=== PATIENT | female | born 1990 ===

== ENCOUNTER 2024-01-28 13:54 | Outpatient (AMB) | payer MEDICARE, MEDICAID, SELFPAY ==
--- NOTE | 2024-01-28 14:04 | MHC.PC.OV ---
Vital Signs 01/28/24 14:13 Height 5 ft 4 in Weight 89 lb 2 oz BMI 15.3 BP 96/50 L Blood Pressure Location Rt brachial Position Sitting Pulse 75 Pulse Source Pulse Oximeter Temp 98.8 F Temp Source Oral Pulse Oximetry (%) 99 Oxygen Delivery Method Room Air Intake Visit Reasons: est care Intake Note: New patient visit Accompanied by: Mother Is last menstrual period known: Yes Last menstrual period: 01/27/24 Allergies amoxicillin Allergy (Mild, Verified 01/28/24 14:08) Diarrhea Medication List - Last Reconciled 01/28/24 by Shweta Lindsey PA-C cholecalciferol (vitamin D3) (Vitamin D3) 50 mcg PO DAILY lacosamide mg PO omeprazole 20 mg PO DAILY polyethylene glycol 3350 (Miralax) 17 grams PO DAILY sertraline 25 mg PO DAILY topiramate 100 mg PO BID Tobacco use date assessed: 01/28/24 Dental Screening Dental Screen Date: 01/28/24 Did you have a dental visit in the last 12 months?: Yes Did you have a dental problem in the last 6 months where you did not have access to dental care?: No Was dental information given to patient?: Patient has dentist HPI est care HPI Details Pt is a 33 y/o female who presents today to [facility] care. 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 She has a hx of newly diagnosed seizures, constipation, hormonal anxiety. -She can express her needs with eye tracking device. No language. Psych: will start sertraline 25 mg Neuro: [facility] neuro, Dr. Chi, for seizures. This was a recent dx at [facility] this summer. 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 at [facility] Medical History (Updated 01/28/24 @ 15:32 by Shweta Lindsey PA-C) Seizure, epileptic Asthma Family History (Updated 01/28/24 @ 14:20 by Elida Wilson CMA) Mother Asthma Maternal Grandmother HTN (hypertension) Hypercholesteremia Social History (Updated 01/28/24 @ 14:20 by Elida Wilson CMA) Housing: House (With mom) Patient Tobacco Use Status: Never used Tobacco e-Cigarette/Vaping Use: Never Used Second Hand Smoke Exposure: No service: No Current occupational status: disabled Cognitive needs: Yes (neurological disorder.) Hearing needs: No Vision needs: No Female Reproductive History Menstrual Date of last menstrual period: 01/27/24 Questionnaire PHQ-9 Over the last 2 weeks, how often have you been bothered by any of the following problems? 1. Little interest or pleasure in doing things: not at all 2. Feeling down, depressed, or hopeless: not at all 3. Trouble falling or staying asleep, or sleeping too much: not at all 4. Feeling tired or having little energy: not at all 5. Poor appetite or overeating: not at all 6. Feeling bad about yourself - or that you are a failure or have let yourself or your family down: not at all 7. Trouble concentrating on things, such as reading the newspaper or watching television: not at all 8. Moving or speaking so slowly that other people could have noticed. Or the opposite - being so fidgety or restless that you have been moving around a lot more than usual: not at all 9. Thoughts that you would be better off or of hurting yourself in some way: not at all Total score: 0 Depression Screening Interpretation: Negative Depression Screening Done: Yes 73768 - PHQ-9 Billing: Yes Source: Developed by Drs. Jefferson Garcia, Mer Clemens, Kulwinder Loving and colleagues, with an educational josesito from [employer]. Thrive Questionnaire Date Thrive assessed: 01/28/24 I am a: Patient What is your living situation today?: I have a steady place to live Within the past 12 months, did the food you bought not last and you didn't have the money to get more?: Never true Within the past 12 months, did you worry whether your food would run out before you got money to buy more?: Never true Do you have trouble paying for medicines?: No Do you have trouble getting transportation to medical appointments?: No Do you have trouble paying your heating and electricity bill?: No Do you have trouble taking care of your child, family member or friend?: No Do you have trouble with day-to-day activities such as bathing, preparing meals, shopping, managing finances, etc.?: Yes Are you currently unemployed and looking for a job?: No Are you interested in more education?: Yes Please select the resources that you would like help with: Daily support and Education Currently or been in a relationship where the following occur: No concerns reported THRIVE Score: 0 AUDIT C Alcohol Use Questionnaire (AUDIT-C) 1. How often do you have a drink containing alcohol?: Never 3. How often do you have six or more drinks on one occasion?: Never Total Score: 0 FARHANA-7 AMB Questionnaire FARHANA-7 Feeling nervous, anxious, or on edge: 0 = Not at all Not being able to stop or control worryin = Not at all Worrying too much about different things: 0 = Not at all Trouble relaxin = Not at all Being so restless that it is hard to sit still: 0 = Not at all Becoming easily annoyed or irritable: 0 = Not at all Feeling afraid as if something awful might happen: 0 = Not at all Total FARHANA-7 score (0-4 normal; 5-9 mild; 10-14 moderate; 15-21 severe): 0 Source: Developed by Drs. Jefferson Garcia, Mer Clemens, Kulwinder Loving and colleagues, with an educational josesito from [employer]. FARHANA-7 Assessment Billing FARHANA-7 Assessment Tool: FARHANA-7 Assessment 25434 Physical exam (Primary Care) Vital Signs: Last Vital Signs Temp 98.8 F 01/28/24 14:13 Pulse 75 01/28/24 14:13 BP 96/50 L 01/28/24 14:13 Pulse Ox 99 01/28/24 14:13 Oxygen Delivery Method Room Air 01/28/24 14:13 BMI result Body Mass Index 15.3 Tobacco/Smoking Status: Tobacco use Status Tobacco use date assessed 01/28/24 01/28/24 14:20 Patient Tobacco Use Status Never used Tobacco 01/28/24 14:20 e-Cigarette/Vaping Use Never Used 01/28/24 14:20 PHQ-9: PHQ-9 Score PHQ-9: Total score 0 01/28/24 14:46 Depression Screening Interpretation: Negative Thrive Assessment: Date of Thrive Assessment Date Thrive assessed 01/28/24 01/28/24 14:24 Currently or been in a relationship where the following occur: No concerns reported HENMT Ears: hearing grossly normal bilaterally Neck Thyroid: Thyroid normal Lymphatic: no lymphadenopathy noted Resp Auscultation: clear to auscultation bilaterally Cardio Rate: regular rate Rhythm: regular rhythm Heart sounds: S1 normal heart sound present and S2 normal heart sound present Skin General skin exam: no rashes or lesions noted Assessment and Plan Assessment & Plan (1) Seizure, epileptic: Code(s): G40.909 - Epilepsy, unspecified, not intractable, without status epilepticus Plan: following with neurology. 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 has great support system. goes to [employer]. dx officially in 2020 from [facility] with michaelle mcdermid. 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 (3) Mood disorder: Code(s): F39 - Unspecified mood [affective] disorder Plan: will try sertraline. she tried it in the past and tolerated it. follow up 4-6 weeks. Medications: New sertraline 25 mg PO DAILY 90 tabs 0RF Coding Level of Care Code New Pt Level 3 (91929) Diagnoses Seizure, epileptic G40.909 [place]-mcdermid syndrome Q93.52 Mood disorder F39 Additional Codes FARHANA-7 Assessment Billing - FARHANA-7 Assessment Tool: FARHANA-7 Assessment 33036 ([id number])
[2024-01-28 14:13] VITALS: BP 96/50; PULSE 75; TEMP 37.1; O2SAT 99; BMI 15.3
== END 2024-01-28 14:56 | disposition home or self-care (01) ==
PROVIDERS: PCP Physician Assistant; Visit Provider Physician Assistant
DX: G40.909 Epilepsy, unspecified, not intractable, without status epilepticus (principal); Q93.52 Phelan-McDermid syndrome; F39 Unspecified mood [affective] disorder
CPT/HCPCS: 99203

== ENCOUNTER 2024-02-10 09:42 | Outpatient (REF) | payer MEDICARE, MEDICAID, SELFPAY ==
[2024-02-10 11:04] LABS: MANUAL DIFF FLAG NO
[2024-02-10 11:15] LABS: Basophils Absolute Auto 0.1 X10*3/uL (0.0-0.2); Basophils Percent Auto 0.9 % (0-2); Eosinophils Absolute Auto 0.3 X10*3/uL (0.0-0.4); Eosinophils Percent Auto 5.9 % (0-4); Hematocrit 36.5 % (37.0-47.0); Hemoglobin 11.5 g/dl (12.0-16.0); Imm Gran Abs Auto 0.02 X10*3/uL (0.00-0.03); Imm Gran Pct Auto 0.3 % (0.0-0.4); Lymphocytes Absolute Auto 1.7 X10*3/uL (1.2-4.9); Lymphocytes Percent Auto 29.4 % (20-40); Mean Corpuscular HGB Conc 31.5 g/dl (31.0-35.0); Mean Corpuscular Hemoglobin 30.8 pg (27.0-33.0); Mean Corpuscular Volume 97.9 fL (80.0-98.0); Mean Platelet Volume 11.7 fL (9.4-12.3); Monocytes Absolute Auto 0.4 X10*3/uL (0.1-1.2); Monocytes Percent Auto 7.1 % (2-11); Neutrophils Absolute Auto 3.3 x10*3/uL (2.0-8.3); Neutrophils Percent Auto 56.4 % (45-73); Platelet Count 248 X10*3/uL (160-400); Red Blood Count 3.73 X10*6/uL (4.20-5.50); Red Cell Distribution Width 12.2 % (11.0-16.0); White Blood Count 5.8 X10*3/uL (4.8-10.8)
[2024-02-10 12:05] LABS: Alanine Aminotransferase 18 U/L (0-31); Albumin Level 4.1 g/dL (3.5-5.0); Alkaline Phosphatase 64 U/L (39-117); Aspartate Amino Transferase 17 U/L (5-31); Bilirubin Direct 0.1 mg/dL (0.0-0.5); Magnesium 2.2 mg/dL (1.6-2.6); Phosphorus 3.1 mg/dL (2.7-4.5)
[2024-02-10 12:09] LABS: Bilirubin Total 0.2 mg/dL (0.0-1.0)
== END 2024-02-10 09:43 | disposition home or self-care (01) ==
LOC: HO.WFDLDS 09:42
PROVIDERS: Visit Provider Physician Assistant
DX: G40.909 Epilepsy, unspecified, not intractable, without status epilepticus (principal); R79.89 Other specified abnormal findings of blood chemistry; E83.39 Other disorders of phosphorus metabolism
CPT/HCPCS: 36415; 80076; 83735; 84100; 85025

== ENCOUNTER 2024-02-12 12:31 | Outpatient (AMB) | payer MEDICARE, MEDICAID, SELFPAY ==
--- NOTE | 2024-02-12 12:43 | MHC.PC.OV ---
Vital Signs 02/12/24 12:46 BP 108/58 L Blood Pressure Location Rt brachial Intake Visit Reasons: hd follow up/seizures/needs bloodwork done Intake Note: Blood results. Has appt on Thursday for hospital follow up. Allergies amoxicillin Allergy (Mild, Verified 01/28/24 14:08) Diarrhea Medication List - Last Reviewed 02/12/24 by Elida Wilson CMA cholecalciferol (vitamin D3) (Vitamin D3) 50 mcg PO DAILY lacosamide 200 mg (2 x 100 mg) PO BID omeprazole 20 mg PO DAILY polyethylene glycol 3350 (Miralax) 17 grams PO DAILY sertraline 25 mg PO DAILY sod phos di, mono-K phos mono 250 mg (Phospha Neutral) 1 tab PO BID Tobacco use date assessed: 01/28/24 Dental Screening Dental Screen Date: 01/28/24 HPI HPI Comments History of Present Illness Details Here today for a Transitional Care Management Visit Discharge summary reviewed. 33-year-old female admitted for breakthrough seizures. Extensive workup done. Noted to have low phosphorus levels. It was noted that she was receiving excessive calcium supplementation, particularly calcium carbonate through her almond milk which stops a phosphorus from being absorbed. It was estimated that she was receiving 150-100% of her require calcium intake per day and only about 30% of her phosphorus requirements. The low phosphorus levels were also compounded by high copper levels in kachava nutritional shake which increase his phosphorus excretion in the urine. She was discharged home on 15 days of phosphorus supplementation. Advised to stop the kachava shake and almond milk. Recommended to continue the vitamin-D supplementation. Recommended that she use rectal diazepam as needed for recurrent seizures. Follow up with the neurologist, bone doctor and field assessor. Admission Date: 02/03/24 Discharge Date: 02/06/24 Hospital: [facility] Pending diagnostic tests/treatments: none Pending consults: none DME: no new PT/OT/STAPLE SIDE LASTER: [facility] for PT and visiting nurse has not started yet but in the works Referrals: [facility] Neurology appointment scheduled 03/07/2024 Medications reconciled & updated. New medications include diazepam 10 mg per rectum once as needed for seizure activity Potassium phosphate sodium 1 tablet twice per day for 15 days Lacosamide increased from 100 mg twice per day to 200 mg twice per day Ensure 350 kilocalories 3 times per day [facility] Discontinued was her baclofen, elderberry and topiramate Presents today with mom who provides the history. She reports that the patient has had no seizures since return home. She cont to give the Kachava shake but with h20 and not almond milk. Did not start Ensure. Is taking the phosphorus supplement as directed along with the increase in her lacosamide. She discontinued the baclofen, topiramate elderberry as directed. Repeat labs taken on 02/10/2024 show a phosphorus level of 3.1, magnesium 2.2, mild anemia RBCs 3.73, hemoglobin 11.5, hematocrit 36.5 New complaint today is that seasonal allergies. Patient is scratching at her nose and her eyes. Using Flonase without relief. Mom also want to mention in regards to the sertraline that was prescribed at the last primary care visit, that she was not able to start it immediately given the health concerns of the patient currently has. However she does admit that she needs it and will give it as prescribed. She does have a routine follow up scheduled with the primary care in March. Exam Awake, alert, accompanied by mom, nonverbal Rubbing her nose and eyes during the exam Regular rate and rhythm Difficult pulmonary exam as patient is walking around the room, however from what I could appreciate clear. Patient does not have any cough. No audible wheezing. During todays TCM visit, the d/c summary was reviewed, along with the need for or follow-up on pending diagnostic tests and treatments, as necessary interaction with other health healthcare economics manager who will assume or reassume care of the beneficiary?s system-specific problems was done or is being worked on, education was provided to the beneficiary, family, guardian, and/or caregiver, referrals to establish or re-establish and arrange needed community resources we completed, assistance in scheduling required follow-up with community providers and services & finally updated medication list given to patient/caregiver Plan Continue phosphorus supplementation as directed until a 15 day course of therapy is completed. Stop giving the Kachava shake. Please start to use the unsure 3 times per day. I have sent in a [facility] I would like to check her labs about 1 week after phosphorus supplementation is completed. These lab orders have been placed. A referral to a field assessor has been placed today. Please continue lacosamide at the increased dose of 200 mg twice per day, refill sent today. Attend follow up with Neurology as scheduled 03/07/2024. Continue to use p.r.n. rectal diazepam as needed for seizures. Seizure precautions recommended. In regards to her seasonal allergies, recommend Claritin 5 mg soluble tab to be used as needed. This note is constructed using voice recognition software. While every effort has been made to ensure accuracy in procurement manager, still errors may have been included Sometimes, these errors may affect the content or meaning of the given sentence . Total time spent caring for the patient today was 45 minutes. This includes time spent before the visit reviewing the chart, time spent during the visit, and time spent after the visit on documentation [facility] Medical History (Updated 02/12/24 @ 15:27 [facility] Seizure, epileptic Asthma Family History (Updated 01/28/24 @ 14:20 by Elida Wilson CMA) Mother Asthma Maternal Grandmother HTN (hypertension) Hypercholesteremia Social History (Updated 01/28/24 @ 14:20 by Elida Wilson CMA) Housing: House (With mom) Patient Tobacco Use Status: Never used Tobacco e-Cigarette/Vaping Use: Never Used Second Hand Smoke Exposure: No service: No Current occupational status: disabled Cognitive needs: Yes (neurological disorder.) Hearing needs: No Vision needs: No Questionnaire Thrive Questionnaire Date Thrive assessed: 01/28/24 Physical exam (Primary Care) Vital Signs: Last Vital Signs BP 108/58 L 02/12/24 12:46 Tobacco/Smoking Status: Tobacco use Status Tobacco use date assessed 01/28/24 02/12/24 12:45 Patient Tobacco Use Status Never used Tobacco 02/12/24 12:45 e-Cigarette/Vaping Use Never Used 02/12/24 12:45 Thrive Assessment: Date of Thrive Assessment Date Thrive assessed 01/28/24 02/12/24 12:45 Assessment and Plan Assessment & Plan (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 (2) 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 (3) Seizure, epileptic: Code(s): G40.909 - Epilepsy, unspecified, not intractable, without status epilepticus (4) Seasonal allergies: Code(s): J30.2 - Other seasonal allergic rhinitis Orders: Orders Phosphorus 02/23/24 E83.39 - Other disorders of phosphorus metabolism Referrals [facility] Referral E83.39 - Other disorders of phosphorus metabolism, Q93.52 - [place]-McDermid syndrome Medications: New lacosamide 200 mg (2 x 100 mg) PO BID 120 tabs 1RF loratadine (Allergy Relief (loratadine)) 5 mg PO DAILY 90 tabs 0RF food supplemt, lactose-reduced (Ensure Original oral liquid) Ensure original, 8oz, 3 times per day 1 ea PO TID 21,600 mL 2RF Coding Level of Care Code TCM High MDM <= 7 Days Diagnoses Hypophosphatemia E83.39 Eugene-mcdermid syndrome Q93.52 Seizure, epileptic G40.909 Seasonal allergies J30.2
[2024-02-12 12:46] VITALS: BP 108/58
== END 2024-02-12 13:12 | disposition home or self-care (01) ==
PROVIDERS: PCP Physician Assistant; Visit Provider Nurse Practitioner Family
DX: E83.39 Other disorders of phosphorus metabolism (principal); Q93.52 Phelan-McDermid syndrome; G40.909 Epilepsy, unspecified, not intractable, without status epilepticus; J30.2 Other seasonal allergic rhinitis
CPT/HCPCS: 99496

== ENCOUNTER 2024-03-02 11:30 | Outpatient (AMB) | payer MEDICARE, MEDICAID, SELFPAY ==
--- NOTE | 2024-03-02 11:33 | A.OFFPC_ITS ---
Vital Signs 03/02/24 11:36 Height 5 ft 4 in Weight 88 lb 6 oz BMI 15.2 BP 98/60 Blood Pressure Location Lt brachial Position Sitting Respiration 14 Comment unable to get o2 or pulse Intake Visit Reasons: HDF/not eating or drinking Intake Note: follow up on patient not eating or drinking. Patient just started eating something light on last thursday. Allergies amoxicillin Allergy (Mild, Verified 03/02/24 11:40) Diarrhea Medication List - Last Reconciled 03/02/24 by AUYSH MontillaP- cholecalciferol (vitamin D3) (Vitamin D3) 50 mcg PO DAILY diazepam MA DAILY food supplemt, lactose-reduced (Ensure Original oral liquid) 1 ea PO TID lacosamide 200 mg (2 x 100 mg) PO BID loratadine (Allergy Relief (loratadine)) 5 mg PO DAILY omeprazole 20 mg PO DAILY polyethylene glycol 3350 (Miralax) 17 grams PO DAILY sertraline 25 mg PO DAILY sod phos di, mono-K phos mono 250 mg (Phospha Neutral) 1 tab PO BID Tobacco use date assessed: 01/28/24 Dental Screening Dental Screen Date: 01/28/24 HPI HPI Comments History of Present Illness Details Here today for a Transitional Care Management Visit Discharge summary reviewed. 33 y/o F, medically complex, Presented to the emergency room after 24 hours of refusal to eat, drink or take her medications. Found to have stercoral colitisn. She was treated with an aggressive bowel regimen, NG tube decompression which produced several bowel movements. She was tolerating p.o. intake on discharge. She was also having a hard time opening her mouth. I discussion was had about placing a G-tube but the family wanted to give her more time. At discharge her phosphorus level was 2.7, magnesium 1.9, BUN 2 creatinine 0.42, normal electrolytes RBCs 3.66, hemoglobin 11.2, hematocrit 33.8 Admission Date: Discharge Date: 02/27/24 Hospital: [facility] Referrals: Recommend referral to Gastroenterology, discuss goals of care and possible G-tube placement, outpatient nutrition, repeat electrolytes, magnesium, phosphorus, renal function in 2-3 days, follow up chronic anemia Medications reconciled & updated. No medications discontinued New medications include Bisacodyl 10 mg rectal suppository, 1 suppository rectally as needed for constipation Docusate 100 mg 1 tablet by mouth 2 times per day Polyethylene glycol 3350 17 g by mouth 2 times per day for the next few days and then daily as needed Psyllium 2.4 g/3.7 g oral powder take 2.4 g by mouth 2 times a day as needed for constipation Senna 187 mg 2 tab 8.6 mg by mouth daily at bedtime as needed for constipation Presents with mom and dad today. Initially upon return home she would not eat or open her mouth. However the next day she ate very little food and drank. On Thursday again she would not open her mouth to eat. The mom gave her a bisacodyl suppository which produced a large diarrhea mushy brown stool early Thursday morning. She seemed to eat and drink better after this. She has been able to take her medications, eat, drink. She has been giving her the Colace and MiraLax. Has not started the Metamucil or the senna. Did by flaxseed meal however given the poor p.o. intake this has not been used routinely. The parents deny any nausea or vomiting. Deny any fever. Discussed gastroenterology referral. They are open to this. Asked about G- tube. Discuss need to meet her nutritional needs. Risk for nutritional deficiencies given the above. A travelers' aid worker referral is already in place. Exam: Awake, alert, accompanied by mom & Dad , nonverbal. sitting the in chair, moaning occasionally. Putting her hand to her mouth, parents indicate that means she is hungry she does not appear distressed Last time i saw her she was moaning and pacing in the room. Rubbing her nose and eyes during the exam occassionally Regular rate and rhythm Abd soft, nontender, normoactive bs x 4. Plan: KUB and labs today. See below. Mom called at 1715 w the results. I have advised her to give fleets enema tonight and tomorrow morning. Bisacodyl 10 mg rectal suppository, 1 suppository rectally as needed for constipation every 72 hours Docusate 100 mg 1 tablet by mouth 2 times per day Polyethylene glycol 3350 17 g by mouth then daily Psyllium 2.4 g/3.7 g oral powder take 2.4 g by mouth 2 times a day Senna 187 mg 2 tab 8.6 mg by mouth daily at bedtime Repeat KUB on Thursday Referral to [facility] GI Schedule appt w Nutrition FU with PCP as scheduled [facility] TCM visit, the d/c summary was reviewed, along with the need for or follow-up on pending diagnostic tests and treatments, as necessary interaction with other health insurance healthcare representative who will assume or reassume care of the beneficiary?s system-specific problems was done or is being worked on, education was provided to the beneficiary, family, guardian, and/or caregiver, referrals to establish or re-establish and arrange needed community resources we completed, assistance in scheduling required follow-up with community providers and services & finally updated medication list given to patient/caregiver This note is constructed using voice recognition software. While every effort has been made to ensure accuracy in lead technologist in cytogenetics, still errors may have been included Sometimes, these errors may affect the content or meaning of the given sentence . [facility] Medical History (Updated 03/02/24 @ 17:28 by GEMMA Montilla) Seizure, epileptic Asthma Family History (Updated 01/28/24 @ 14:20 by Elida Wilson CMA) Mother Asthma Maternal Grandmother HTN (hypertension) Hypercholesteremia Social History (Updated 01/28/24 @ 14:20 by Elida Wilson CMA) Housing: House (With mom) Patient Tobacco Use Status: Never used Tobacco e-Cigarette/Vaping Use: Never Used Second Hand Smoke Exposure: No service: No Current occupational status: disabled Cognitive needs: Yes (neurological disorder.) Hearing needs: No Vision needs: No Questionnaire Thrive Questionnaire Date Thrive assessed: 01/28/24 Physical exam (Primary Care) Vital Signs: Last Vital Signs Resp 14 03/02/24 11:36 BP 98/60 03/02/24 11:36 BMI result Body Mass Index 15.2 Tobacco/Smoking Status: Tobacco use Status Tobacco use date assessed 01/28/24 03/02/24 11:35 Patient Tobacco Use Status Never used Tobacco 03/02/24 11:35 e-Cigarette/Vaping Use Never Used 03/02/24 11:35 Thrive Assessment: Date of Thrive Assessment Date Thrive assessed 01/28/24 03/02/24 11:35 Results Reviewed [place]ed[place] [facility] [id number] [place] [address] KERRY Stock [id number] Report Signed Patient: Ashlie Paulino#: [id number]: 1990Acct:[id number]/Sex: 33 / FADM Date: 03/02/24Loc: [id number] Dr: Arlene Storm [facility] Ordering Physician: Arlene Storm Date of Service: 03/02/24 Procedure(s): XR KUB Accession Number(s): [id number] cc: MECCA PINON NP; Shweta Lindsey; rAlene Storm [facility]~ EXAMINATION: XR ABDOMEN CLINICAL INFORMATION: Pain COMPARISON: None TECHNIQUE: Frontal view. FINDINGS: Included lung bases are clear. Air-filled dilated colon and rectum concerning for colonic ileus, There is also increased amount of stool projecting over the colon especially rectum raising suspicion for constipation. There is no evidence of bowel obstruction, however. There is no evidence of abnormal calcifications. There is no acute skeletal structure changes. There is no evidence of small-bowel obstruction. There is no free air in the abdomen. XR/XR KUB IMPRESSION: * Increased amount of stool in the colon suggesting constipation. Please correlate with clinical presentation. * Air-filled dilated colon and rectum concerning for colonic ileus versus sequela of the rectal fecal impaction. Consider correlation with follow-up x-ray after enema Electronically signed by: Issa Croft MD 03/02/2024 05:02 PM EDT Dictated By:Issa Croft MDSigned By:<Electronically signed by Issa aparicio MD in OV>03/02/24 1702 DD/ 1344 RUN: 03/02/24 1637 PAGE 1 [facility] [address] [place] [phone] Digital Retoucher: Faustino Krishnamurthy M.D. Specimen Inquiry Name: Socorro Paulino Age/Sex: 33/F : 1990 Unit#: [id number] Attend Dr: Arlene Storm [facility] Re03/02/24 Status: REG REF Location: [facility] Disch: SPEC : [id number] EFRAIN: 03/02/24 STATUS: COMP REQ : [id number] RECD: 03/02/[address]: Arlene Storm [facility] COMP: 03/02/24 ENTERED: 03/02/[address]: Shweta Lindsey ORDERED: CBC No Diff Test Result Flag Reference WBC 5.2 4.8-10.8 X10*3/uL RBC 4.20 4.20-5.50 X10*6/uL HGB 12.8 12.0-16.0 g/dl HCT 39.9 37.0-47.0 % MCV 95.0 80.0-98.0 fL MCH 30.5 27.0-33.0 pg MCHC 32.1 31.0-35.0 g/dl RDW 12.2 11.0-16.0 % PLT 308 160-400 X10*3/uL MPV 12.6 H 9.4-12.3 fL NRBC Pct Auto 0.0 0.0-0.2 /100WBC NRBC Abs Auto 0.000 0.0-0.012 X10*3/uL END OF REPORT RUN: 03/02/24 6796 PAGE 1 [facility] [address] [place] [id number] Digital Retoucher: Faustino Krishnamurthy M.D. Specimen Inquiry Name: Socorro Paulino Age/Sex: 33/F : 1990 Unit#: [id number] Attend Dr: Arlene Strom [facility] Re03/02/24 Status: REG REF Location: [facility] Disch: SPEC : [id number] EFRAIN: 03/02/24 STATUS: COMP REQ : [id number] RECD: 03/02/24-[address]: Arelne Storm [facility] COMP: 03/02/24-1703 ENTERED: 03/02/24-[address]: Shweta Lindsey ORDERED: CMP, Phos, MG Test Result Flag Reference Sodium 138 135-145 mmol/L Potassium 4.7 3.3-5.1 mmol/L Mild Hemolysis CL 104 96-108 mmol/L CO2 22 22-29 mmol/L Gap 17 12-20 BUN 5 L 9-16 mg/dL Creat 0.72 0.5-1.4 mg/dL EGFR > 60 NOTE: For -Citizen Of [place] individuals, multiply the result by 1.210. Chronic Kidney Disease: Estimated GFR < 60 mL/min/1.73m2 Severe Kidney Disease: Estimated GFR < 15 mL/min/1.73m2 Glucose, Random 81 60-115 mg/dL CA 9.8 8.4-10.2 mg/dL Phosphorus 3.8 2.7-4.5 mg/dL Mild Hemolysis Magnesium 2.5 1.6-2.6 mg/dL Mild Hemolysis Total Bili 0.2 0.0-1.0 mg/dL AST (GOT) 27 5-31 U/L Mild Hemolysis ALT (GPT) 14 0-31 U/L Protein, Total 8.4 H 6.5-8.0 g/dL Mild Hemolysis Alb 4.5 3.5-5.0 g/dL Alk Phos 64 39-117 U/L END OF REPORT Assessment and Plan Assessment & Plan (1) Hospital discharge follow-up: Code(s): Z09 - Encounter for follow-up examination after completed treatment for conditions other than malignant neoplasm (2) Stercoral colitis: Code(s): K52.89 - Other specified noninfective gastroenteritis and colitis (3) Failure to thrive in adult: Code(s): R62.7 - Adult failure to thrive (4) Hypophosphatemia: Code(s): E83.39 - Other disorders of phosphorus metabolism (5) Anemia: Code(s): D64.9 - Anemia, unspecified Qualifiers: Anemia type: iron deficiency Iron deficiency anemia type: inadequate dietary iron intake Qualified Code(s): D50.8 - Other iron deficiency anemias (6) Constipation: Code(s): K59.00 - Constipation, unspecified Qualifiers: Constipation type: slow transit constipation Qualified Code(s): K59.01 - Slow transit constipation Orders: Orders XR KUB Today K52.89 - Other specified noninfective gastroenteritis and colitis Phosphorus Today D64.9 - Anemia, unspecified, E83.39 - Other disorders of phosphorus metabolism, K52.89 - Other specified noninfective gastroenteritis and colitis, R62.7 - Adult failure to thrive Comprehensive Met. Panel Today D64.9 - Anemia, unspecified, E83.39 - Other disorders of phosphorus metabolism, K52.89 - Other specified noninfective gastroenteritis and colitis, R62.7 - Adult failure to thrive Complete Blood Count no Diff Today D64.9 - Anemia, unspecified, E83.39 - Other disorders of phosphorus metabolism, K52.89 - Other specified noninfective gastroenteritis and colitis, R62.7 - Adult failure to thrive Magnesium Today D64.9 - Anemia, unspecified, E83.39 - Other disorders of phosphorus metabolism, R62.7 - Adult failure to thrive XR KUB Today K52.89 - Other specified noninfective gastroenteritis and colitis, K59.00 - Constipation, unspecified Referrals Gastroenterology Referral K52.89 - Other specified noninfective gastroente ritis and colitis, R62.7 - Adult failure to thrive Medications: New sennosides (senna) 17.2 mg (2 x 8.6 mg) PO BEDTIME 90 days 180 tabs 2RF docusate sodium (Colace) 100 mg PO BID 90 days 180 caps 2RF mineral oil (Fleet Mineral Oil enema) x 2 118 mL MA DAILY PRN 266 mL 0RF constipation Coding Level of Care Code TCM High MDM <= 7 Days Complex EM visit Add On G2211 Diagnoses Hospital discharge follow-up Z09 Stercoral colitis K52.89 Failure to thrive in adult R62.7 Hypophosphatemia E83.39 Iron deficiency anemia secondary to inadequate dietary iron intake D50.8 Anemia type: iron deficiency Iron deficiency anemia type: inadequate dietary iron intake Slow transit constipation K59.01 Constipation type: slow transit constipation
[2024-03-02 11:36] VITALS: BP 98/60; RESP 14; BMI 15.2
== END 2024-03-02 14:46 | disposition home or self-care (01) ==
PROVIDERS: PCP Physician Assistant; Visit Provider Nurse Practitioner Family
DX: K52.89 Other specified noninfective gastroenteritis and colitis (principal); R62.7 Adult failure to thrive; E83.39 Other disorders of phosphorus metabolism; D50.8 Other iron deficiency anemias; K59.01 Slow transit constipation; Z09 Encounter for follow-up examination after completed treatment for conditions other than malignant neoplasm

== ENCOUNTER → 2024-03-02 11:30 | Outpatient (BNVA) | payer MEDICARE, MEDICAID, SELFPAY | PROVIDERS: PCP Physician Assistant; Visit Provider Nurse Practitioner Family ==

== ENCOUNTER 2024-03-02 13:38 | Outpatient (REF) | payer MEDICARE, MEDICAID, SELFPAY ==
--- NOTE | ~2024-03-02 | XR_ITS ---
EXAMINATION: XR ABDOMEN CLINICAL INFORMATION: Pain COMPARISON: None TECHNIQUE: Frontal view. FINDINGS: Included lung bases are clear. Air-filled dilated colon and rectum concerning for colonic ileus, There is also increased amount of stool projecting over the colon especially rectum raising suspicion for constipation. There is no evidence of bowel obstruction, however. There is no evidence of abnormal calcifications. There is no acute skeletal structure changes. There is no evidence of small-bowel obstruction. There is no free air in the abdomen. XR/XR KUB IMPRESSION: * Increased amount of stool in the colon suggesting constipation. Please correlate with clinical presentation. * Air-filled dilated colon and rectum concerning for colonic ileus versus sequela of the rectal fecal impaction. Consider correlation with follow-up x-ray after enema Electronically signed by: Issa Croft MD 03/02/2024 05:02 PM EDT
[2024-03-02 16:28] LABS: Hematocrit 39.9 % (37.0-47.0); Hemoglobin 12.8 g/dl (12.0-16.0); Mean Corpuscular HGB Conc 32.1 g/dl (31.0-35.0); Mean Corpuscular Hemoglobin 30.5 pg (27.0-33.0); Mean Platelet Volume 12.6 fL (9.4-12.3); Platelet Count 308 X10*3/uL (160-400); Red Cell Distribution Width 12.2 % (11.0-16.0); White Blood Count 5.2 X10*3/uL (4.8-10.8)
[2024-03-02 17:04] LABS: Alanine Aminotransferase 14 U/L (0-31); Albumin Level 4.5 g/dL (3.5-5.0); Alkaline Phosphatase 64 U/L (39-117); Anion Gap 17 (12-20); Aspartate Amino Transferase 27 U/L (5-31); Bilirubin Total 0.2 mg/dL (0.0-1.0); Blood Urea Nitrogen 5 mg/dL (9-16); Calcium 9.8 mg/dL (8.4-10.2); Carbon Dioxide 22 mmol/L (22-29); Chloride 104 mmol/L (96-108); Estimated Glomerular Filt Rate > 60; Glucose Random 81 mg/dL (60-115); Magnesium 2.5 mg/dL (1.6-2.6); Phosphorus 3.8 mg/dL (2.7-4.5); Potassium 4.7 mmol/L (3.3-5.1); Sodium 138 mmol/L (135-145); Total Protein 8.4 g/dL (6.5-8.0)
== END 2024-03-02 13:39 | disposition home or self-care (01) ==
LOC: HO.HMGCX 13:38
PROVIDERS: PCP Physician Assistant; Visit Provider Nurse Practitioner Family
DX: K52.89 Other specified noninfective gastroenteritis and colitis (principal); R62.7 Adult failure to thrive; D50.8 Other iron deficiency anemias; K59.01 Slow transit constipation
CPT/HCPCS: 36415; 74018; 80053; 83735; 84100; 85027; 99212

== ENCOUNTER 2024-03-05 13:03 | Outpatient (REF) | payer MEDICARE, MEDICAID, SELFPAY ==
--- NOTE | ~2024-03-05 | XR_ITS ---
EXAMINATION: XR ABDOMEN KUB CLINICAL INDICATION: Follow-up from prior KUB 03/02/2024, constipation, unspecified, status post enema. COMPARISON: 03/02/2024 KUB. TECHNIQUE: AP view of the abdomen. FINDINGS: Previously seen gas distended ascending and transverse colon as well as rectum and sigmoid has resolved to a good degree. Previously seen large ball of stool in the rectal vault is essentially resolved. There is persistent large volume stool seen throughout the colon, mainly in the transverse, descending, sigmoid, and superior rectal region. No abnormally dilated loops of small bowel or large bowel at this time. No definite abnormal soft tissue calcification. Lung bases clear. No organomegaly. No suspicious bone abnormalities. Subtle right convex scoliosis of the lumbar spine, possibly positional. XR/XR KUB IMPRESSION: 1. Resolution of rectal fecal impaction. 2. Resolution of gas distended ascending and transverse colon, and rectosigmoid. 3. Persistent obstipation. 4. No abnormally dilated loops of bowel. Electronically signed by: William Santos MD 03/16/2024 11:51 AM EDT
== END 2024-03-05 13:04 | disposition home or self-care (01) ==
LOC: HO.HMGCX 13:03
PROVIDERS: PCP Physician Assistant; Visit Provider Nurse Practitioner Family
DX: K59.00 Constipation, unspecified (principal); K52.89 Other specified noninfective gastroenteritis and colitis
CPT/HCPCS: 74018

== ENCOUNTER → 2024-03-05 13:11 | Outpatient (BNV) | payer MEDICARE, MEDICAID, SELFPAY | PROVIDERS: PCP Physician Assistant; Visit Provider Radiology Diagnostic Radiology | DX: K56.41 Fecal impaction (principal) | CPT/HCPCS: 74018 ==

== ENCOUNTER 2024-03-16 11:04 | Outpatient (AMB) | payer MEDICARE, MEDICAID, SELFPAY ==
--- NOTE | 2024-03-16 11:05 | MHC.PC.OV ---
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 She is accompanied today by both parents who helps provide the history as she is nonverbal. Since I last saw her she was hospitalized a couple times and most recently hospitalized for bowel obstruction with fecal impaction that resolved with aggressive bowel regimen. She had a KUB which showed improvement of symptoms on 03/05. When she was in the hospital they did discuss possibly doing a G-tube but patient's family wants to hold off on this for as long as possible. They tell me today that it seems like her weight is stable and she is not continuing to lose weight. She seems to enjoy eating again. She saw GI last week and states that they switched her from Colace and senna to Linzess and that seems to have made a difference. She is also still on Metamucil and MiraLax daily. She is having regular bowel movements again. Mom uses enema as needed for her. They have a follow up with GI in 2 weeks. At my last visit with her I did start her on sertraline daily to help with anxiety and they feel like this has helped. She is tolerating the medication well. Parents do notice that she is a little bit of flaking around her right external ear. She sometimes scratches at it. They state that for last couple weeks she has been back to her baseline and would like a letter to return to her day program. [facility] Medical History (Updated 03/16/24 @ 12:41 by Shweta Lindsey PA-C) Seizure, epileptic Asthma Family History (Updated 01/28/24 @ 14:20 by Elida Wilson CMA) Mother Asthma Maternal Grandmother HTN (hypertension) Hypercholesteremia Social History (Updated 01/28/24 @ 14:20 by Elida Wilson CMA) Housing: House (With mom) Patient Tobacco Use Status: Never used Tobacco e-Cigarette/Vaping Use: Never Used Second Hand Smoke Exposure: No service: No Current occupational status: disabled Cognitive needs: Yes (neurological disorder.) Hearing needs: No Vision needs: No Questionnaire Thrive Questionnaire Date Thrive assessed: 01/28/24 Physical exam (Primary Care) Vital Signs: Last Vital Signs BP 96/62 03/16/24 11:16 BMI result Body Mass Index 15.2 Tobacco/Smoking Status: Tobacco use Status Tobacco use date assessed 01/28/24 03/16/24 11:07 Patient Tobacco Use Status Never used Tobacco 03/16/24 11:07 e-Cigarette/Vaping Use Never Used 03/16/24 11:07 Thrive Assessment: Date of Thrive Assessment Date Thrive assessed 01/28/24 03/16/24 11:07 HENMT Other: There is flaking skin of the bilateral external ears Ears: hearing grossly normal bilaterally Neck Thyroid: Thyroid normal Lymphatic: no lymphadenopathy noted Resp Auscultation: clear to auscultation bilaterally Cardio Rate: regular rate Rhythm: regular rhythm Heart sounds: S1 normal heart sound present and S2 normal heart sound present GI Inspection: Yes normal to inspection Palpation (GI): Soft to palpation and Other GI palpation findings present (nontender, no cva tenderness) Auscultation: normoactive bowel sounds Rectal Exam - Female: deferred Skin General skin exam: no rashes or lesions noted Results Reviewed Results Reviewed: EXAMINATION: XR ABDOMEN KUB CLINICAL INDICATION: Follow-up from prior KUB 03/02/2024, constipation, unspecified, status post enema. COMPARISON: 03/02/2024 KUB. TECHNIQUE: AP view of the abdomen. FINDINGS: Previously seen gas distended ascending and transverse colon as well as rectum and sigmoid has resolved to a good degree. Previously seen large ball of stool in the rectal vault is essentially resolved. There is persistent large volume stool seen throughout the colon, mainly in the transverse, descending, sigmoid, and superior rectal region. No abnormally dilated loops of small bowel or large bowel at this time. No definite abnormal soft tissue calcification. Lung bases clear. No organomegaly. No suspicious bone abnormalities. Subtle right convex scoliosis of the lumbar spine, possibly positional. XR/XR KUB IMPRESSION: 1. Resolution of rectal fecal impaction. 2. Resolution of gas distended ascending and transverse colon, and rectosigmoid. 3. Persistent obstipation. 4. No abnormally dilated loops of bowel. 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 Has follow up with GI again in 2 weeks. Reviewed KUB with family (2) Failure to thrive in adult: Code(s): R62.7 - Adult failure to thrive Category: Medical Plan: Stable/improved. (3) Mood disorder: Code(s): F39 - Unspecified mood [affective] disorder Category: Medical Plan: Improves with sertraline (4) Eczema of both external ears: Code(s): H60.543 - Acute eczematoid otitis externa, bilateral Category: Medical Plan: They will use [id number] hydrocortisone cream twice a day for the next week and let me know if symptoms fail to improve.
[2024-03-16 11:16] VITALS: BP 96/62; BMI 15.2
== END 2024-03-16 11:46 | disposition home or self-care (01) ==
LOC: HO.HMCFM 11:04
PROVIDERS: PCP Physician Assistant; Visit Provider Physician Assistant
DX: K59.01 Slow transit constipation (principal); R62.7 Adult failure to thrive; F39 Unspecified mood [affective] disorder; H60.543 Acute eczematoid otitis externa, bilateral

== ENCOUNTER → 2024-03-16 11:04 | Outpatient (BNVA) | payer MEDICARE, MEDICAID, SELFPAY | PROVIDERS: PCP Physician Assistant; Visit Provider Physician Assistant | DX: K59.01 Slow transit constipation (principal); R62.7 Adult failure to thrive; F39 Unspecified mood [affective] disorder; H60.543 Acute eczematoid otitis externa, bilateral | CPT/HCPCS: 99212 ==

== ENCOUNTER 2024-03-23 08:47 | Outpatient (AMB) | payer MEDICARE, MEDICAID, SELFPAY ==
--- NOTE | 2024-03-23 08:53 | MHC.PC.OV ---
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 She is accompanied today by both parents who helps provide the history as she is nonverbal. Over the weekend mom has noted a decrease in eating. Over the last 24 hours she has not wanted to eat or drink. She thought possibly it was related to constipation but is not sure anymore. She states that she has been getting good size bowel movements when she has use the enema. She last used this yesterday. She has been having a hard time getting her to take her meds because of the refusal to eat and drink. She says that she has had the syringe some fluid into her mouth today to get her to take the seizure medications. She has seemed a bit more agitated than baseline. Over the last week in the morning she seems to be agitated for a couple hours. They wonder if it is related to her antiseizure regimen but she was previously fine with this. They also wonder if it could be the Zoloft that is causing her to get agitated. She has not taken this for a couple days with no change in symptoms. She was supposed to have a follow up with GI on Thursday for the new bowel regimen which is MiraLax, Colace and Linzess with enemas as needed. They have been trying to hold off on doing a G-tube but mom wonders if it is time for this. She has lost a few lb since she was last seen. She denies any fever, chills, sinus pain or pressure, vomiting, odor in her diaper, urinary symptoms, change in energy, or obvious signs of pain. [facility] Medical History (Updated 03/16/24 @ 12:41 by Shweta Lindsey PA-C) Seizure, epileptic Asthma Family History (Updated 01/28/24 @ 14:20 by Elida Wilson CMA) Mother Asthma Maternal Grandmother HTN (hypertension) Hypercholesteremia Social History (Updated 01/28/24 @ 14:20 by Elida Wilson CMA) Housing: House (With mom) Patient Tobacco Use Status: Never used Tobacco e-Cigarette/Vaping Use: Never Used Second Hand Smoke Exposure: No service: No Current occupational status: disabled Cognitive needs: Yes (neurological disorder.) Hearing needs: No Vision needs: No Questionnaire Thrive Questionnaire Date Thrive assessed: 01/28/24 I am a: Parent/Caregiver What is your living situation today?: I have a steady place to live Within the past 12 months, did the food you bought not last and you didn't have the money to get more?: I choose not to answer this question Within the past 12 months, did you worry whether your food would run out before you got money to buy more?: I choose not to answer this question Do you have trouble paying for medicines?: I choose not to answer this question Do you have trouble getting transportation to medical appointments?: I choose not to answer this question Do you have trouble paying your heating and electricity bill?: I choose not to answer this question Do you have trouble taking care of your child, family member or friend?: I choose not to answer this question Do you have trouble with day-to-day activities such as bathing, preparing meals, shopping, managing finances, etc.?: I choose not to answer this question Are you currently unemployed and looking for a job?: I choose not to answer this question Are you interested in more education?: I choose not to answer this question Please select the resources that you would like help with: Transportation Currently or been in a relationship where the following occur: No concerns reported THRIVE Score: 0 AUDIT C Alcohol Use Questionnaire (AUDIT-C) 1. How often do you have a drink containing alcohol?: Never Total Score: 0 FARHANA-7 AMB Questionnaire FARHANA-7 Feeling nervous, anxious, or on edge: 0 = Not at all Not being able to stop or control worryin = Not at all Worrying too much about different things: 0 = Not at all Trouble relaxin = Not at all Being so restless that it is hard to sit still: 3 = Nearly every day Becoming easily annoyed or irritable: 2 = More than half the days Feeling afraid as if something awful might happen: 2 = More than half the days Total FARHANA-7 score (0-4 normal; 5-9 mild; 10-14 moderate; 15-21 severe): 7 Source: Developed by Drs. Jefferson Garcia, Mer Clemens, Kulwinder Loving and colleagues, with an educational josesito from [employer]. Physical exam (Primary Care) Vital Signs: Last Vital Signs BP 102/62 03/23/24 08:54 BMI result Body Mass Index 16.8 Tobacco/Smoking Status: Tobacco use Status Tobacco use date assessed 01/28/24 03/23/24 08:57 Patient Tobacco Use Status Never used Tobacco 03/23/24 08:57 e-Cigarette/Vaping Use Never Used 03/23/24 08:57 Thrive Assessment: Date of Thrive Assessment Date Thrive assessed 01/28/24 03/23/24 08:57 Currently or been in a relationship where the following occur: No concerns reported HENMT Ears: hearing grossly normal bilaterally Neck Thyroid: Thyroid normal Lymphatic: no lymphadenopathy noted Resp Auscultation: clear to auscultation bilaterally Cardio Rate: regular rate Rhythm: regular rhythm Heart sounds: S1 normal heart sound present and S2 normal heart sound present GI Inspection: Yes normal to inspection Palpation (GI): Soft to palpation and Other GI palpation findings present (nontender, no cva tenderness) Auscultation: normoactive bowel sounds Rectal Exam - Female: deferred Skin General skin exam: no rashes or lesions noted Coding Level of Care Code Est Pt Level 4 (62609) Diagnoses Failure to thrive in adult R62.7 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 Patient and family understand and agree with the plan. I did call [place] with an expect. We will follow up afterwards. 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
[2024-03-23 08:54] VITALS: BP 102/62; BMI 16.8
== END 2024-03-23 11:43 | disposition home or self-care (01) ==
PROVIDERS: PCP Physician Assistant; Visit Provider Physician Assistant
DX: R62.7 Adult failure to thrive (principal); Q93.52 Phelan-McDermid syndrome

== ENCOUNTER → 2024-03-23 08:47 | Outpatient (BNVA) | payer MEDICARE, MEDICAID, SELFPAY | PROVIDERS: PCP Physician Assistant; Visit Provider Physician Assistant | DX: R62.7 Adult failure to thrive (principal); Q93.52 Phelan-McDermid syndrome | CPT/HCPCS: 99212 ==

== ENCOUNTER 2024-05-25 10:12 | Outpatient (AMB) | payer MEDICARE, MEDICAID, SELFPAY ==
--- NOTE | 2024-05-25 10:20 | A.OFFPC_ITS ---
Vital Signs 05/25/24 10:31 Weight 85 lb BMI Reason not done Patient refused/unable BP 96/60 Blood Pressure Location Rt brachial Position Sitting Intake Visit Reasons: Seizure f/u Intake Note: Hospital follow up Children'S Author Required: No Allergies amoxicillin Allergy (Mild, Verified 05/25/24 10:22) Diarrhea Medication List - Last Reconciled 05/25/24 by Shweta Lindsey PA-C cholecalciferol (vitamin D3) (Vitamin D3) 50 mcg PO DAILY diazepam SD DAILY food supplemt, lactose-reduced (Ensure Original oral liquid) 1 ea PO TID lacosamide 200 mg (2 x 100 mg) PO BID linaclotide (Linzess) . loratadine (Allergy Relief (loratadine)) 5 mg PO DAILY mineral oil (Fleet Mineral Oil enema) 118 mL SD DAILY PRN nitrofurantoin monohyd/m-cryst 100 mg 1 cap PO BID polyethylene glycol 3350 (Miralax) 17 grams PO DAILY Tobacco use date assessed: 01/28/24 Dental Screening Dental Screen Date: 01/28/24 HPI Seizure f/u HPI Details Patient is a 33-year-old female with a significant past medical history of [place] McDermid syndrome, failure to thrive, constipation, seizures presenting today for a hospital follow up. She was hospitalized last week at [facility] with a fever, decreased appetite, dehydration and diagnosed ultimately with a UTI. On Macrobid until Thursday. After a couple of days patient's mom's states that she started to eat. She did lose a couple lb from the hospitalization. They are discussing tube feedings with GI but she really wants to hold off on this. She is interested in also starting a probiotic to see if that will help with the constipation. The constipation seems to be better with the MiraLax and use of Linzess. Ultimately, mother would like to cut back on the Linzess if possible and go with more of a natural approach with the probiotics as [place] often gets bloated. She has an upcoming appointment arranged with GI on the . She is continuing with the Protonix. Currently diet is an ensure in the morning and another 1/2 ensure in the evening. They are trying to increase her weight. Since the hospital she does seem a bit better but she is tired more than her baseline. Her mood and appetite seem to be better. She overall seems improved with the clobazam, lacosamide and Topamax. [facility] Medical History (Updated 05/25/24 @ 13:11 by Shewta Lindsey PA-C) Seizure, epileptic Asthma Family History (Updated 01/28/24 @ 14:20 by Elida Wilson CMA) Mother Asthma Maternal Grandmother HTN (hypertension) Hypercholesteremia Social History (Updated 01/28/24 @ 14:20 by Elida Wilson CMA) Housing: House (With mom) Patient Tobacco Use Status: Never used Tobacco e-Cigarette/Vaping Use: Never Used Second Hand Smoke Exposure: No service: No Current occupational status: disabled Cognitive needs: Yes (neurological disorder.) Hearing needs: No Vision needs: No Questionnaire Thrive Questionnaire Date Thrive assessed: 03/23/24 I am a: Parent/Caregiver What is your living situation today?: I have a steady place to live Within the past 12 months, did the food you bought not last and you didn't have the money to get more?: I choose not to answer this question Within the past 12 months, did you worry whether your food would run out before you got money to buy more?: I choose not to answer this question Do you have trouble paying for medicines?: I choose not to answer this question Do you have trouble getting transportation to medical appointments?: I choose not to answer this question Do you have trouble paying your heating and electricity bill?: I choose not to answer this question Do you have trouble taking care of your child, family member or friend?: I choose not to answer this question Do you have trouble with day-to-day activities such as bathing, preparing meals, shopping, managing finances, etc.?: I choose not to answer this question Are you currently unemployed and looking for a job?: I choose not to answer this question Are you interested in more education?: I choose not to answer this question Please select the resources that you would like help with: Transportation Currently or been in a relationship where the following occur: No concerns reported THRIVE Score: 0 Physical exam (Primary Care) Vital Signs: Last Vital Signs BP 96/60 05/25/24 10:31 Tobacco/Smoking Status: Tobacco use Status Tobacco use date assessed 01/28/24 05/25/24 10:28 Patient Tobacco Use Status Never used Tobacco 05/25/24 10:28 e-Cigarette/Vaping Use Never Used 05/25/24 10:28 Thrive Assessment: Date of Thrive Assessment Date Thrive assessed 03/23/24 05/25/24 10:28 Currently or been in a relationship where the following occur: No concerns reported Resp Auscultation: clear to auscultation bilaterally Cardio Rate: regular rate Rhythm: regular rhythm Heart sounds: S1 normal heart sound present and S2 normal heart sound present GI Inspection: Yes normal to inspection Palpation (GI): Soft to palpation and Other GI palpation findings present (nontender, no cva tenderness) Auscultation: normoactive bowel sounds Rectal Exam - Female: deferred Skin General skin exam: no rashes or lesions noted Coding Level of Care Code Est Pt Level 4 (15189) Complex EM visit Add On G2211 Diagnoses UTI (urinary tract infection) N39.0 Slow transit constipation K59.01 Constipation type: slow transit constipation Failure to thrive in adult R62.7 Assessment & Plan Assessment & Plan (1) UTI (urinary tract infection): Code(s): N39.0 - Urinary tract infection, site not specified Category: Medical Plan: Continue Macrobid as directed. Feeling that the patient is improved. We will repeat UA and culture after completion of antibiotic. (2) Constipation: Code(s): K59.00 - Constipation, unspecified Category: Medical Qualifiers: Constipation type: slow transit constipation Qualified Code(s): K59.01 - Slow transit constipation Plan: Improve. We will try probiotics. (3) Failure to thrive in adult: Code(s): R62.7 - Adult failure to thrive Category: Medical Plan: Labs ordered. We will send in ensure to pharmacy. We will try to increase to twice a day Orders: Orders Comprehensive Met. Panel Today D50.8 - Other iron deficiency anemias, K59.01 - Slow transit constipation, N39.0 - Urinary tract infection, site not specified, R62.7 - Adult failure to thrive Complete Blood Count Auto Diff Today D50.8 - Other iron deficiency anemias, K59.01 - Slow transit constipation, N39.0 - Urinary tract infection, site not specified, R62.7 - Adult failure to thrive TSH reflex Free T4 Today D50.8 - Other iron deficiency anemias, K59.01 - Slow transit constipation, N39.0 - Urinary tract infection, site not specified, R62.7 - Adult failure to thrive UA CC w/rflx Micro + Cult Today D50.8 - Other iron deficiency anemias, K59.01 - Slow transit constipation, N39.0 - Urinary tract infection, site not specified, R62.7 - Adult failure to thrive, Z13.220 - Encounter for screening for lipoid disorders Medications: Changed From food supplemt, lactose-reduced (Ensure Original oral liquid) Ensure original, 8oz, 3 times per day 1 ea PO TID 21,600 mL 2RF To food supplemt, lactose-reduced (Ensure Original oral liquid) Ensure original,Vanilla, 8oz, 2-3 times per day 1 ea PO TID 21,600 mL 2RF
[2024-05-25 10:31] VITALS: BP 96/60
== END 2024-05-25 10:59 | disposition home or self-care (01) ==
PROVIDERS: PCP Physician Assistant; Visit Provider Physician Assistant
DX: N39.0 Urinary tract infection, site not specified (principal); K59.01 Slow transit constipation; R62.7 Adult failure to thrive

== ENCOUNTER → 2024-05-25 10:12 | Outpatient (BNVA) | payer MEDICARE, MEDICAID, SELFPAY | PROVIDERS: PCP Physician Assistant; Visit Provider Physician Assistant | DX: N39.0 Urinary tract infection, site not specified (principal); K59.01 Slow transit constipation; R62.7 Adult failure to thrive | CPT/HCPCS: 99212 ==

== ENCOUNTER 2024-06-16 14:11 | Outpatient (AMB) | payer MEDICARE, MEDICAID, SELFPAY ==
--- NOTE | 2024-06-16 14:15 | A.OFFPC_ITS ---
Vital Signs 06/16/24 14:20 Height 5 ft 4 in BMI Reason not done Patient refused/unable BP 96/66 Blood Pressure Location Rt brachial Position Sitting Respiration 11 L Pulse 95 Pulse Source Pulse Oximeter Pulse Oximetry (%) 95 Oxygen Delivery Method Room Air Intake Visit Reasons: two weeks/ fu on meds/uti Intake Note: Two weeks follow up on meds Gas And Oil Checker Required: No Allergies amoxicillin Allergy (Mild, Verified 06/16/24 14:16) Diarrhea Tobacco use date assessed: 01/28/24 Dental Screening Dental Screen Date: 01/28/24 HPI two weeks/ fu on meds/uti HPI Details Patient is a 33-year-old female with a significant past medical history of [place] McDermid syndrome, failure to thrive, constipation, seizures presenting today for a follow up. She was seen recently for hospital follow up after being diagnosed ultimately with a UTI. Her symptoms had been improved but her mother states today that she did not urinate for close to 24 hours yesterday. She did urinate a lot this morning. She has not urinated again since then. There was no odor. Mom has not noticed any abdominal pain. Patient is still eating and drinking. She also had a bowel movement this morning which is very reassuring for her. Her mother does note that she has been somewhat more tired than her baseline but her mood seems okay. Currently diet is 2 ensures in the morning. It does appear that she has put on 2 lb since our previous visit. She is currently about 87 lb. This maybe somewhat inaccurate as she does need assistance with the scale. She overall seems improved with the clobazam, lacosamide and Topamax. [facility] Medical History (Updated 06/16/24 @ 16:06 by Shweta Lindsey PA-C) Seizure, epileptic Asthma Family History (Updated 01/28/24 @ 14:20 by Elida Wilson CMA) Mother Asthma Maternal Grandmother HTN (hypertension) Hypercholesteremia Social History (Updated 01/28/24 @ 14:20 by Elida Wilson CMA) Housing: House (With mom) Patient Tobacco Use Status: Never used Tobacco e-Cigarette/Vaping Use: Never Used Second Hand Smoke Exposure: No service: No Current occupational status: disabled Cognitive needs: Yes (neurological disorder.) Hearing needs: No Vision needs: No Questionnaire PHQ-9 Over the last 2 weeks, how often have you been bothered by any of the following problems? 28948 - PHQ-9 Billing: Patient declined-do not bill Source: Developed by Drs. Jefferson Garcia, Mer Clemens, Kulwinder Loving and colleagues, with an educational josesito from [employer]. Thrive Questionnaire Date Thrive assessed: 06/16/24 I am a: Parent/Caregiver What is your living situation today?: I have a steady place to live Within the past 12 months, did the food you bought not last and you didn't have the money to get more?: Never true Within the past 12 months, did you worry whether your food would run out before you got money to buy more?: I choose not to answer this question Do you have trouble paying for medicines?: No Do you have trouble getting transportation to medical appointments?: I choose not to answer this question Do you have trouble paying your heating and electricity bill?: I choose not to answer this question Do you have trouble taking care of your child, family member or friend?: I choose not to answer this question Do you have trouble with day-to-day activities such as bathing, preparing meals, shopping, managing finances, etc.?: I choose not to answer this question Are you currently unemployed and looking for a job?: I choose not to answer this question Are you interested in more education?: I choose not to answer this question Please select the resources that you would like help with: None Currently or been in a relationship where the following occur: No concerns reported THRIVE Score: 0 AUDIT C Alcohol Use Questionnaire (AUDIT-C) 1. How often do you have a drink containing alcohol?: Never Total Score: 0 FARHANA-7 AMB Questionnaire FARHANA-7 Date FARHANA - 7 assessed: 06/16/24 Feeling nervous, anxious, or on edge: 0 = Not at all Not being able to stop or control worryin = Not at all Worrying too much about different things: 0 = Not at all Trouble relaxin = Not at all Being so restless that it is hard to sit still: 0 = Not at all Becoming easily annoyed or irritable: 0 = Not at all Feeling afraid as if something awful might happen: 0 = Not at all Total FARHANA-7 score (0-4 normal; 5-9 mild; 10-14 moderate; 15-21 severe): 0 Source: Developed by Drs. Jefferson Garcia, Mer Clemens, Kulwinder Loving and colleagues, with an educational josesito from [employer]. FARHANA-7 Assessment Billing FARHANA-7 Assessment Tool: FARHANA-7 Assessment 58224 Physical exam (Primary Care) Vital Signs: Last Vital Signs Pulse 95 06/16/24 14:20 Resp 11 L 06/16/24 14:20 BP 96/66 06/16/24 14:20 Pulse Ox 95 06/16/24 14:20 Oxygen Delivery Method Room Air 06/16/24 14:20 Tobacco/Smoking Status: Tobacco use Status Tobacco use date assessed 01/28/24 06/16/24 14:18 Patient Tobacco Use Status Never used Tobacco 06/16/24 14:18 e-Cigarette/Vaping Use Never Used 06/16/24 14:18 Thrive Assessment: Date of Thrive Assessment Date Thrive assessed 06/16/24 06/16/24 14:18 Currently or been in a relationship where the following occur: No concerns reported Resp Auscultation: clear to auscultation bilaterally Cardio Rate: regular rate Rhythm: regular rhythm Heart sounds: S1 normal heart sound present and S2 normal heart sound present GI Inspection: Yes normal to inspection Palpation (GI): Soft to palpation and Other GI palpation findings present (nontender, no cva tenderness) Skin General skin exam: no rashes or lesions noted Coding Level of Care Code Est Pt Level 4 (60221) Complex EM visit Add On G2211 Diagnoses History of urinary retention Z87.898 Failure to thrive in adult R62.7 Mood disorder F39 Seizure, epileptic G40.909 Additional Codes FARHANA-7 Assessment Billing - FARHANA-7 Assessment Tool: FARHANA-7 Assessment 45087 ([id number]) Assessment & Plan Assessment & Plan (1) History of urinary retention: Code(s): Z87.898 - Personal history of other specified conditions Category: Medical Plan: Has a history of intermittently holding her urine. Last urination was earlier today. She did not urinate for 24 hours prior to this. I advised mother that if this does happen again or if she hits 12 hours without any urination she needs to go to the hospital to be scanned and Cathed. I will check her labs tod ay and her urine. We will follow up pending the test results.. (2) Failure to thrive in adult: Code(s): R62.7 - Adult failure to thrive Category: Medical Plan: Stable (3) Mood disorder: Code(s): F39 - Unspecified mood [affective] disorder Category: Medical Plan: Stable (4) Seizure, epileptic: Code(s): G40.909 - Epilepsy, unspecified, not intractable, without status epilepticus Category: Medical Plan: Improved with current regimen ? If new medications or possibly contributing to urinary retention
[2024-06-16 14:20] VITALS: BP 96/66; PULSE 95; RESP 11; O2SAT 95
== END 2024-06-16 14:43 | disposition home or self-care (01) ==
PROVIDERS: PCP Physician Assistant; Visit Provider Physician Assistant
DX: Z87.898 Personal history of other specified conditions (principal); R62.7 Adult failure to thrive; F39 Unspecified mood [affective] disorder; G40.909 Epilepsy, unspecified, not intractable, without status epilepticus

== ENCOUNTER 2024-06-16 14:59 | Outpatient (REF) | payer MEDICARE, MEDICAID, SELFPAY ==
[2024-06-16 18:09] LABS: MANUAL DIFF FLAG NO
[2024-06-16 18:31] LABS: Basophils Absolute Auto 0.1 X10*3/uL (0.0-0.2); Basophils Percent Auto 0.8 % (0-2); Eosinophils Absolute Auto 0.6 X10*3/uL (0.0-0.4); Eosinophils Percent Auto 10.1 % (0-4); Hematocrit 40.9 % (37.0-47.0); Hemoglobin 13.3 g/dl (12.0-16.0); Imm Gran Abs Auto 0.02 X10*3/uL (0.00-0.03); Imm Gran Pct Auto 0.3 % (0.0-0.4); Lymphocytes Absolute Auto 2.1 X10*3/uL (1.2-4.9); Lymphocytes Percent Auto 34.6 % (20-40); Mean Corpuscular HGB Conc 32.5 g/dl (31.0-35.0); Mean Corpuscular Hemoglobin 31.2 pg (27.0-33.0); Mean Platelet Volume 12.8 fL (9.4-12.3); Monocytes Absolute Auto 0.5 X10*3/uL (0.1-1.2); Monocytes Percent Auto 8.8 % (2-11); Neutrophils Absolute Auto 2.7 x10*3/uL (2.0-8.3); Neutrophils Percent Auto 45.4 % (45-73); Platelet Count 257 X10*3/uL (160-400); Red Blood Count 4.26 X10*6/uL (4.20-5.50); Red Cell Distribution Width 12.3 % (11.0-16.0)
[2024-06-16 18:41] LABS: Alanine Aminotransferase 14 U/L (0-31); Albumin Level 4.5 g/dL (3.5-5.0); Alkaline Phosphatase 70 U/L (39-117); Anion Gap 11 (12-20); Aspartate Amino Transferase 23 U/L (5-31); Bilirubin Total 0.2 mg/dL (0.0-1.0); Blood Urea Nitrogen 10 mg/dL (9-16); Calcium 9.3 mg/dL (8.4-10.2); Carbon Dioxide 25 mmol/L (22-29); Chloride 111 mmol/L (96-108); Estimated Glomerular Filt Rate > 60; Glucose Random 91 mg/dL (60-115); Sodium 143 mmol/L (135-145); Total Protein 7.9 g/dL (6.5-8.0)
== END 2024-06-16 15:00 | disposition home or self-care (01) ==
LOC: HO.WFDLDS 14:59
PROVIDERS: Visit Provider Physician Assistant
DX: R62.7 Adult failure to thrive (principal); F39 Unspecified mood [affective] disorder; G40.909 Epilepsy, unspecified, not intractable, without status epilepticus; N39.0 Urinary tract infection, site not specified; D50.8 Other iron deficiency anemias; K59.01 Slow transit constipation; Z87.898 Personal history of other specified conditions
CPT/HCPCS: 36415; 80053; 84443; 85025; 96127; 99212

== ENCOUNTER 2024-08-18 10:36 | Outpatient (AMB) | payer MEDICARE, MEDICAID, SELFPAY ==
--- NOTE | 2024-08-18 10:49 | MHC.PC.OV ---
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 She was seen recently for hospital follow up after being diagnosed ultimately with a UTI and constipation. since her hospital discharge on 08/03 she has been doing well. Mom states that she is voiding without much difficulty and they were started on Flomax which has been helpful. She has an appointment later today with urology to discuss straight caths as needed at home/ Day program. her energy appears back to baseline. In regards to constipation she is having if anything looser stools right now but is doing very well. Currently diet is 2 ensures in the morning. It does appear that she has put on 2 lb since our previous visit. She is currently about 89 lb. She overall seems improved with the clobazam, lacosamide and Topamax. No recurrent seizures. Following with Neurology closely [facility] Medical History (Updated 06/16/24 @ 16:06 by Shweta Lindsey PA-C) Seizure, epileptic Asthma Family History (Updated 01/28/24 @ 14:20 by Elida Wilson CMA) Mother Asthma Maternal Grandmother HTN (hypertension) Hypercholesteremia Social History (Updated 01/28/24 @ 14:20 by Elida Wilson CMA) Housing: House (With mom) Patient Tobacco Use Status: Never used Tobacco e-Cigarette/Vaping Use: Never Used Second Hand Smoke Exposure: No service: No Current occupational status: disabled Cognitive needs: Yes (neurological disorder.) Hearing needs: No Vision needs: No Questionnaire Thrive Questionnaire Date Thrive assessed: 06/16/24 I am a: Parent/Caregiver What is your living situation today?: I have a steady place to live Within the past 12 months, did the food you bought not last and you didn't have the money to get more?: Never true Within the past 12 months, did you worry whether your food would run out before you got money to buy more?: I choose not to answer this question Do you have trouble paying for medicines?: No Do you have trouble getting transportation to medical appointments?: I choose not to answer this question Do you have trouble paying your heating and electricity bill?: I choose not to answer this question Do you have trouble taking care of your child, family member or friend?: I choose not to answer this question Do you have trouble with day-to-day activities such as bathing, preparing meals, shopping, managing finances, etc.?: I choose not to answer this question Are you currently unemployed and looking for a job?: I choose not to answer this question Are you interested in more education?: I choose not to answer this question Please select the resources that you would like help with: None Currently or been in a relationship where the following occur: No concerns reported THRIVE Score: 0 FARHANA-7 AMB Questionnaire FARHANA-7 Date FARHANA - 7 assessed: 06/16/24 Source: Developed by Drs. Jefferson Garcia, Mer Clemens, Kulwinder Loving and colleagues, with an educational josesito from [email or web address]. Physical exam (Primary Care) Vital Signs: Last Vital Signs Pulse 99 08/18/24 11:01 BP 121/75 08/18/24 11:01 BMI result Body Mass Index 15.3 Tobacco/Smoking Status: Tobacco use Status Tobacco use date assessed 01/28/24 08/18/24 10:49 Patient Tobacco Use Status Never used Tobacco 08/18/24 10:49 e-Cigarette/Vaping Use Never Used 08/18/24 10:49 Thrive Assessment: Date of Thrive Assessment Date Thrive assessed 06/16/24 08/18/24 10:49 Currently or been in a relationship where the following occur: No concerns reported HENPR Ears: hearing grossly normal bilaterally Resp Auscultation: clear to auscultation bilaterally Cardio Rate: regular rate Rhythm: regular rhythm Heart sounds: S1 normal heart sound present and S2 normal heart sound present GI Inspection: Yes normal to inspection Palpation (GI): Soft to palpation and Other GI palpation findings present (nontender, no cva tenderness) Auscultation: normoactive bowel sounds Skin General skin exam: no rashes or lesions noted Coding Level of Care Code Est Pt Level 4 (46685) Complex EM visit Add On G2211 Diagnoses UTI (urinary tract infection) N39.0 History of urinary retention Z87.898 [place]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 Has an appointment later this afternoon with Urology. (2) History of urinary retention: Code(s): Z87.898 - Personal history of other specified conditions Category: Medical Plan: Doing well with the addition of Flomax. 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 No adverse effects. Mood and energy appear back to baseline (5) Constipation: Code(s): K59.00 - Constipation, unspecified Category: Medical Qualifiers: Constipation type: slow transit constipation Qualified Code(s): K59.01 - Slow transit constipation Plan: improved with aggressive bowel regimen.
[2024-08-18 11:01] VITALS: BP 121/75; PULSE 99; BMI 15.3
--- OUTSIDE RECORDS SUMMARY | 2024-08-18 13:27 | XMS_ITS | Encounter Summary ---
Author Organization [facility] Address [address] [address] Care Team Providers Care Cooker Soda Name Role Phone Janette Freeman MD Primary Care Provider Unavailflorinda e August Agarwal MD Primary Care Provider Tiara dominguez [facility], Pcp Primary Care Provider Unavailabl e Encounter Details Date Type Department Care Team Description 03/25/2016 Release of Information Medical Records [address] [place] [address] [facility] [place] [address] Abstract, Provider Social History Tobacco Use Types Packs/Day Years Used Date Smoking Tobacco: Never Smokeless Tobacco: Never Alcohol Use Standard Drinks/Week Comments Not Asked 0 (1 standard drink = 0.6 oz pur e alcohol) Alcohol Habits Answer Date Recorded How often do you have a drink containing alcohol ? Never 06/14/2019 How many drinks containing a lcohol do you have on a typical day when you are drinking? Not asked How often do you have six or more drinks on one occasion? Not asked Sex Assigned at Date Recorded Not on file documented as of this encounter Plan of Treatment Not on file documented as of this encounter Visit Diagnoses Not on filedocumented in this encounter Care Teams Cooker Soda Relationship Specialty Start Date End Date Janette Freeman MD PCP - General 08/26/08 05/18/19 August Agarwal MD PCP - General Internal Medicine 05/19/19 12/24/20 [facility], Pcp PCP - General 12/25/20 documented as of this encounter
--- OUTSIDE RECORDS SUMMARY | 2024-08-18 13:27 | XMS_ITS | Encounter Summary ---
Author Organization [facility] Address [address] [place] [address] Care Team Providers Care Workforce Planning Analyst Name Role Phone Community, Pcp Primary Care Provider Unavailabl e Reason for Visit * Reason Comments E-prescribe Rx Request Encounter Details Date Type Department Care Team Description 07/19/2024 Refill Adult Urgent Care - [address] [place] [address] Shweta Lindsey PA-C E-prescribe Rx Request Social History Tobacco Use Types Packs/Day Years Used Date Smoking Tobacco: Never Smokeless Tobacco: Never Alcohol Use Standard Drinks/Week Comments No 0 (1 standard drink = 0.6 oz [...] on filedocumented in this encounter Care Teams Workforce Planning Analyst Relationship Specialty Start Date End Date Community, Pcp PCP - General 12/25/20 documented as of this encounter
--- OUTSIDE RECORDS SUMMARY | 2024-08-18 13:27 | XMS_ITS | Encounter Summary ---
Author Organization [facility] Address [address] [place] [address] Care Team Providers Care Tobacco Cloth Reclaimer Name Role Phone Janette Freeman MD Primary Care Provider Unavailabl e August Agarwal MD Primary Care Provider [facility], Pcp Primary Care Provider Unavailabl e Reason for Visit * Reason Onset Date Comments Information Needed 10/01/2012 Encounter Details Date Type Department Care Team Description 10/01/2012 Telephone Pediatrics - [address] [address] Nia Brock NP Information Needed Social History Tobacco Use Types Packs/Day Years [...] on file documented as of this encounter Miscellaneous Notes * Telephone Encounter - Nia Snow NP - 10/01/2012 10:33 AM EDT Spoke with school nurse, ice cream is soft food and should be OK for child, mother has already OK'dit per school nurse. * Telephone Encounter - Nevin Robles - 10/01/2012 9:58 AM EDT Day - school nurse - called, wants approval to feed ice cream to patient today at 1:00 (school green party). She can be reached directly at [phone]. documented in this encounter Plan of Treatment Not on file documented as of this encounter Visit Diagnoses Not on filedocumented in this encounter Care Teams Tobacco Cloth Reclaimer Relationship Specialty Start Date End Date Janette Freeman MD PCP - General 08/26/08 05/18/19 August Agarwal MD PCP - General Internal Medicine 05/19/19 12/24/20 [facility], Pcp PCP - General 12/25/20 documented as of this encounter
--- OUTSIDE RECORDS SUMMARY | 2024-08-18 13:28 | XMS_ITS | Encounter Summary ---
Author Organization [facility] Address [address] [place] [address] Care Team Providers Care Extruding Machine Operator Name Role Phone August Agarwal MD Primary Care Provider Tiara Sanchez, Pcp Primary Care Provider Unavailabl e Encounter Details Date Type Department Care Team Description 08/23/2020 Irrigator Valve Pipe Report Medical Records [address] [place] [id number] [place] [address] Social History Tobacco Use Types Packs/Day Years [...] on filedocumented in this encounter Care Teams Extruding Machine Operator Relationship Specialty Start Date End Date August Agarwal MD PCP - General Internal Medicine 05/19/19 12/24/20 Daniel, Pcp PCP - General 12/25/20 documented as of this encounter
--- OUTSIDE RECORDS SUMMARY | 2024-08-18 13:28 | XMS_ITS | Encounter Summary ---
Author Organization [facility] Address [address] [place] [address] Care Team Providers Care Cover Cutter Name Role Phone Janette Freeman MD Primary Care Provider Simon Scales Primary Care Provider Nikki Mayes Primary Care Provider [phone] Vamsi March Primary Care Provider [phone] August Agarwal MD Primary Care Provider [facility], Pcp Primary Care Provider Vesta henderson Encounter Details Date Type Department Care Team Description 07/05/1998 [facility] [id number] Randi Garcia [address] [place] [address] [id number] ACUTE UPPER RESPIRATORY INFECTIONS OF UNSPECIFIED SITE Social History Tobacco Use Types Packs/Day Years Used Date Smoking Tobacco: Never Assessed Alcohol Habits Answer Date Recorded How often [...] documented as of this encounter Visit Diagnoses Diagnosis Acute upper respiratory infections of unspecified site documented in this encounter Care Teams Cover Cutter Relationship Specialty Start Date End Date Janette Freeman MD PCP - General 08/26/08 05/18/19 Simon Park PCP - General 06/24/99 08/25/08 Nikki Ojeda [address] [place] [address] PCP - General 05/03/1999 06/23/99 Vamsi March [address] [place] [address] PCP - General 12/20/1998 05/02/1999 August Agarwal MD [address] [place] [address] PCP - General Internal Medicine 05/19/19 12/24/20 [facility], Pcp PCP - General 12/25/20 documented as of this encounter
--- OUTSIDE RECORDS SUMMARY | 2024-08-18 13:28 | XMS_ITS | Encounter Summary ---
Author Organization [facility] Address [address] [place] [address] Care Team Providers Care Acupressure Therapist Name Role Phone August Agarwal MD Primary Care Provider Tiara Sanchez, Pcp Primary Care Provider Unavailabl e Encounter Details Date Type Department Care Team Description 07/31/2020 Old Medical Records Medical Records [address] [place], [place] [id number] [place] [address] Social History Tobacco Use Types Packs/Day Years [...] on filedocumented in this encounter Care Teams Acupressure Therapist Relationship Specialty Start Date End Date August Agarwal MD PCP - General Internal Medicine 05/19/19 12/24/20 Daniel, Pcp PCP - General 12/25/20 documented as of this encounter
--- OUTSIDE RECORDS SUMMARY | 2024-08-18 13:28 | XMS_ITS | Encounter Summary ---
Author Organization [facility] Address [address] [place] [address] Care Team Providers Care Dip Unit Operator Name Role Phone August Agarwal MD Primary Care Provider Tiara Sanchez, Pcp Primary Care Provider Unavailabl e Encounter Details Date Type Department Care Team Description 12/30/2019 Motor Vehicle Licence Examiner Report Medical Records [address] [place] [id number] [place] [address] Social History Tobacco Use Types Packs/Day Years [...] on filedocumented in this encounter Care Teams Dip Unit Operator Relationship Specialty Start Date End Date August Agarwal MD PCP - General Internal Medicine 05/19/19 12/24/20 Daniel, Pcp PCP - General 12/25/20 documented as of this encounter
--- OUTSIDE RECORDS SUMMARY | 2024-08-18 13:28 | XMS_ITS | Encounter Summary ---
Author Organization [facility] Address [address] [place] [address] Care Team Providers Care Waste Treatment Operator Name Role Phone Janette Freeman MD Primary Care Provider Unavailabl e August Agarwal MD Primary Care Provider [facility], Pcp Primary Care Provider Unavailabl e Reason for Visit * Reason Onset Date Comments Form 12/26/2011 [facility] form - need immediately Encounter Details Date Type Department Care Team Description 12/26/2011 Telephone Pediatrics - [address] [address] Nia Brock NP Form ([facility] form - need immediately) Social History Tobacco Use Types Packs/Day Years [...] Telephone Encounter - Nia Snow NP - 12/26/2011 2:43 PM EDT Nevin, forms are completed. Child should come in for a Tdap, however. So please let mom know to make a nurse visit and then she'll be all set. Robert D * Telephone Encounter - Nevin Robles - 12/26/2011 1:25 PM EDT Pediatric Form Request Type of form: [facility] form - per mom, patient has been on [facility] wait list for 5 years and finally got chosen to attend, but needs form returned to [facility] by 01/01/12 at the latest, mom would appreciate anything that can be done to complete form immediately. Form is in FORMS folder. Date of last physical: 12/12/10 Does patient want: Will pick pack worker-call when completed: Tel # [phone] documented in this encounter Plan of Treatment Not on file documented as of this encounter Visit Diagnoses Not on filedocumented in this encounter Care Teams Waste Treatment Operator Relationship Specialty Start Date End Date Janette Freeman MD PCP - General 08/26/08 05/18/19 August Agarwal MD PCP - General Internal Medicine 05/19/19 12/24/20 [facility], Pcp PCP - General 12/25/20 documented as of this encounter
== END 2024-08-18 13:07 | disposition home or self-care (01) ==
LOC: HO.HMCFM 10:37
PROVIDERS: PCP Physician Assistant; Visit Provider Physician Assistant
DX: N39.0 Urinary tract infection, site not specified (principal); Z87.898 Personal history of other specified conditions; Q93.52 Phelan-McDermid syndrome; G40.909 Epilepsy, unspecified, not intractable, without status epilepticus; K59.01 Slow transit constipation

== ENCOUNTER → 2024-08-18 10:36 | Outpatient (BNVA) | payer MEDICARE, MEDICAID, SELFPAY | PROVIDERS: PCP Physician Assistant; Visit Provider Physician Assistant | DX: N39.0 Urinary tract infection, site not specified (principal); K59.01 Slow transit constipation; G40.909 Epilepsy, unspecified, not intractable, without status epilepticus; Q93.52 Phelan-McDermid syndrome; Z87.898 Personal history of other specified conditions | CPT/HCPCS: 99212 ==

== ENCOUNTER 2024-10-06 11:10 | Outpatient (AMB) | payer MEDICARE, MEDICAID, SELFPAY ==
--- NOTE | 2024-10-06 11:17 | A.OFFPC_ITS ---
Vital Signs 10/06/24 11:21 Height 5 ft 4 in Weight 89 lb 4 oz BMI 15.3 BP 100/63 Blood Pressure Location Rt brachial Position Sitting Respiration 12 Pulse 86 Pulse Source Pulse Oximeter Temp 97.5 F Temp Source Temporal Artery Scan Pulse Oximetry (%) 100 Oxygen Delivery Method Room Air Intake Visit Reasons: needs to get her Cathter checked out Intake Note: Wants to make sure there is no urinary tract infection to be able to remove the infection. Croze Machine Operator Required: No Allergies amoxicillin Allergy (Mild, Verified 10/06/24 11:18) Diarrhea Medication List - Last Reconciled 10/06/24 by Shweta Lindsey PA-C cefpodoxime 100 mg PO BID cholecalciferol (vitamin D3) (Vitamin D3) 50 mcg PO DAILY clobazam 10 mg PO BEDTIME diazepam TN DAILY docusate sodium 100 mg PO DAILY fluticasone propionate 50 mcg/actuation (Flonase Allergy Relief) 1 spray intranasal DAILY food supplemt, lactose-reduced (Ensure Original oral liquid) 1 ea PO TID lacosamide 200 mg (2 x 100 mg) PO BID linaclotide (Linzess) 145 mcg linaclotide (Linzess) 145 mcg PO DAILY loratadine (Allergy Relief (loratadine)) 5 mg PO DAILY mineral oil (Fleet Mineral Oil enema) 118 mL TN DAILY PRN nitrofurantoin monohyd/m-cryst 100 mg 1 cap PO BID pantoprazole 40 mg PO DAILY polyethylene glycol 3350 (Miralax) 17 grams PO DAILY psyllium husk (Metamucil) 0.4 grams PO DAILY sennosides (senna) 8.6 mg PO DAILY tamsulosin 0.4 mg PO DAILY topiramate XR 100 mg PO BID Tobacco use date assessed: 10/06/24 Dental Screening Dental Screen Date: 01/28/24 HPI needs to get her Cathter checked out HPI Details Patient is a 34-year-old female with a 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 She was seen recently in ED for urinary retention and UTI. She currently has a meeks cath in place and parents state urine looks normal. Her appetite and mood are baseline. No fever or chills. She has a few days left of ceftriaxone. They have an appointment tomorrow morning with [facility] urology at [place] for removing the cath. Mom wants to make sure UTI is gone. They also want second opinion from [facility] in regards to her urinary retention. She states locally urology wants to place a stimulator and she wants to avoid surgery. She has had many utis in the last few months and they would like a preventative if possible because they are seeing mass gen next month. She is currently on flomax as well which appears somewhat helpful. [facility] Medical History (Updated 06/16/24 @ 16:06 by Shweta Lindsey PA-C) Seizure, epileptic Asthma Family History (Updated 01/28/24 @ 14:20 by Elida Wilson CMA) Mother Asthma Maternal Grandmother HTN (hypertension) Hypercholesteremia Social History (Updated 01/28/24 @ 14:20 by Elida Wilson CMA) Housing: House (With mom) Patient Tobacco Use Status: Never used Tobacco e-Cigarette/Vaping Use: Never Used Second Hand Smoke Exposure: No service: No Current occupational status: disabled Cognitive needs: Yes (neurological disorder.) Hearing needs: No Vision needs: No Questionnaire PHQ-9 Over the last 2 weeks, how often have you been bothered by any of the following problems? 1. Little interest or pleasure in doing things: not at all 2. Feeling down, depressed, or hopeless: not at all 3. Trouble falling or staying asleep, or sleeping too much: not at all 4. Feeling tired or having little energy: several days 5. Poor appetite or overeating: more than half the days 6. Feeling bad about yourself - or that you are a failure or have let yourself or your family down: not at all 7. Trouble concentrating on things, such as reading the newspaper or watching television: not at all 8. Moving or speaking so slowly that other people could have noticed. Or the opposite - being so fidgety or restless that you have been moving around a lot more than usual: not at all 9. Thoughts that you would be better off or of hurting yourself in some way: not at all Total score: 3 Source: Developed by Drs. Jefferson Garcia, Mer Clemens, Kulwinder Loving and colleagues, with an educational josesito from [employer]. Thrive Questionnaire Date Thrive assessed: 06/16/24 I am a: Parent/Caregiver What is your living situation today?: I have a steady place to live Within the past 12 months, did the food you bought not last and you didn't have the money to get more?: Never true Within the past 12 months, did you worry whether your food would run out before you got money to buy more?: I choose not to answer this question Do you have trouble paying for medicines?: No Do you have trouble getting transportation to medical appointments?: I choose not to answer this question Do you have trouble paying your heating and electricity bill?: I choose not to answer this question Do you have trouble taking care of your child, family member or friend?: I choose not to answer this question Do you have trouble with day-to-day activities such as bathing, preparing meals, shopping, managing finances, etc.?: I choose not to answer this question Are you currently unemployed and looking for a job?: I choose not to answer this question Are you interested in more education?: I choose not to answer this question Please select the resources that you would like help with: None Currently or been in a relationship where the following occur: No concerns reported THRIVE Score: 0 FARHANA-7 AMB Questionnaire FARHANA-7 Date FARHANA - 7 assessed: 06/16/24 Source: Developed by Drs. Jefferson Garcia, Mer Clemens, Kulwinder Loving and colleagues, with an educational josesito from [employer]. Physical exam (Primary Care) Vital Signs: Last Vital Signs Temp 97.5 F 10/06/24 11:21 Pulse 86 10/06/24 11:21 Resp 12 10/06/24 11:21 BP 100/63 10/06/24 11:21 Pulse Ox 100 10/06/24 11:21 Oxygen Delivery Method Room Air 10/06/24 11:21 BMI result Body Mass Index 15.3 Tobacco/Smoking Status: Tobacco use Status Tobacco use date assessed 10/06/24 10/06/24 11:25 Patient Tobacco Use Status Never used Tobacco 10/06/24 11:19 e-Cigarette/Vaping Use Never Used 10/06/24 11:19 PHQ-9: PHQ-9 Score PHQ-9: Total score 3 10/06/24 11:29 Thrive Assessment: Date of Thrive Assessment Date Thrive assessed 06/16/24 10/06/24 11:19 Currently or been in a relationship where the following occur: No concerns reported Resp Auscultation: clear to auscultation bilaterally Cardio Rate: regular rate Rhythm: regular rhythm Heart sounds: S1 normal heart sound present and S2 normal heart sound present GI Inspection: Yes normal to inspection Palpation (GI): Soft to palpation and Other GI palpation findings present (nontender, no cva tenderness) Auscultation: normoactive bowel sounds Skin General skin exam: no rashes or lesions noted Coding Level of Care Code Est Pt Level 4 (86519) Complex EM visit Add On G2211 Diagnoses UTI (urinary tract infection) N39.0 History of urinary retention Z87.898 Assessment & Plan Assessment & Plan (1) UTI (urinary tract infection): Code(s): N39.0 - Urinary tract infection, site not specified Category: Medical Plan: referral to [facility] follow up closely with urology reviewed culture from ED. antibiotics should be effective. ua/culture ordered (2) History of urinary retention: Code(s): Z87.898 - Personal history of other specified conditions Category: Medical Plan: as above Orders: Referrals Urology Referral N39.0 - Urinary tract infection, site not specified, Z87.898 - Personal history of other specified conditions Medications: New nitrofurantoin macrocrystal must administer with a meal/food 50 mg PO Q24H 90 caps 0RF
[2024-10-06 11:21] VITALS: BP 100/63; PULSE 86; RESP 12; TEMP 36.4; O2SAT 100; BMI 15.3
--- OUTSIDE RECORDS SUMMARY | 2024-10-06 13:02 | XMS_ITS | Clinical Summary ---
Author Organization [facility] Address [address] [place] [address] Phone Care Team Providers Care Bed And Breakfast Cook Name Role Phone Unavailable Primary Care Provider Unavailabl e Allergies No known active allergies Medications lactose-reduced food (BOOST ORAL) Take 2 Cans by mouth 1 (one) time each day. 0 Active polyethylene glycol (Gavilax) 17 gram/dose oral powder Take 17 g by mouth 1 (one) time each day. 0 Active pantoprazole (PROTONIX) 40 mg EC tablet Take 1 tablet (40 mg total) by mouth 1 (one) time each day before breakfast. Do not crush, chew, or split. Active linaCLOtide (Linzess) 290 mcg capsule Take 1 capsule (290 mcg total) by mouth 1 (one) time each day. Active topiramate (TOPAMAX) 100 mg tablet Take 1 tablet (100 mg total) by mouth 2 (two) times a day. Active lacosamide (VIMPAT) 100 mg tablet Take 1 tablet (100 mg total) by mouth 2 (two) times a day. Max Daily Amount: 200 mg Active cholecalciferol (VITAMIN D-3) 50 mcg (2,000 unit) tablet Take 1 tablet (2,000 Units total) by mouth 1 (one) time each day. Active cloBAZam (ONFI) 10 mg tablet Take 1 tablet (10 mg total) by mouth at bedtime. Max Daily Amount: 10 mg Active melatonin 3 mg tablet Take by mouth. Active loratadine (CLARITIN REDITABS) 10 mg dispersible tablet Dissolve 1 tablet (10 mg total) on top of the tongue 1 (one) time each day. Active psyllium (METAMUCIL) powder Take 1 packet by mouth 1 (one) time each day. 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, [facility] V28) DX:Juvenile Parkinson's dise [facility] ([facility]); COMMENT: Shriner's eval- med not helpful History of aspiration pneumonia 09/15/2012 DX:History of aspiration pneumonia; COMMENT: Aspirated at school, intubated for low sats, bronch'd Chronic constipation with ov erflow incontinence 12/12/2010 DX:Chronic constipation with overflow incontinence Urine incontinence 09/15/2012 DX:Urine inco ntinence Eczema 05/22/2006 DX:Eczema 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 V24, [facility] V28) dystonia L arm Seizures ([facility] V24, [facility] V28) Family History Medical History Relation Name Comments Hypertension Maternal Grandmother cardiac issues Asthma Mother Stroke Paternal Grandfather unknown , Alcoholism Osteoporosis Paternal Grandmother Relation Name Status Comments Brother Alive Father Alive Maternal Grandfather Alive Maternal Grandmother Mother Alive Paternal Grandfather Alive Paternal Grandmother Alive Social History Tobacco Use Types Packs/Day Years Used Date Smoking Tobacco: Never Smokeless Tobacco: Never Alcohol Use Standard Drinks/Week Comments No 0 (1 standard drink = 0.6 oz pur e alcohol) Comments Unknown Sex and Gender Information Value Date Recorded Sex Assigned at Not on file Legal Sex Female 12:36 AM EST Gender Identity Not on file Sexual Orientation Not on file Obstetrics History Last Filed Vital Signs Vital Sign Reading Time Taken Comments Blood Pressure - - Pulse - - Temperature - - Respiratory Rate - - Oxygen Saturation - - Inhaled Oxygen Concentration - - Weight 40.8 kg (90 lb) 09/13/2024 10:00 AM EDT Height 162.6 cm (5' 4 ) 09/13/2024 10:00 AM EDT Body Mass Index 15.45 09/13/2024 10:00 AM EDT Plan of Treatment Health Maintenance Due Date Last Done Comments Pneumococcal Vaccine: Pediatrics (0 to 5 Years) and At-Risk Patients (6 to 64 Years) (1 of 2 - PCV) 10/03/2010 Cervical Cancer Screening: Pap Smear 10/03/2012 DTaP,Tdap,and Td Vaccines (7 - Td or Tdap) 11/16/2013 11/17/2003, 01/06/1997, 01/06/1997, Additional history exists COVID-19 Vaccine () 02/07/2024 01/26/2021, 01/05/2021 Depression Screening 05/02/2024 HIV Screening 05/02/2024 Hepatitis C Screening 05/02/2024 Medicare Annual Wellness Visit 05/02/2024 Social Influencers of Health Screening 05/02/2024 HIB Vaccines Completed 01/14/1993, 02/1993, 06/13/1992, Additional history exists Hepatitis B Vaccines Completed 10/19/1995, 05/11/1995, 03/09/1995 IPV Vaccines Completed 01/06/1997, 04/08, 01/14/1993, Additional history exists MMR Vaccines Completed 01/06/1997, 01/14/1993 Influenza Vaccine Completed 03/25/2024, 05/11/2023 HPV Vaccines Aged Out No longer eligi ble based on patient's age to complete this topic Hepatitis A Vaccines Aged Out No long er eligible based on patient's age to complete this topic Meningococcal ACWY Vaccine Aged Out N o longer eligible based on patient's age to complete this topic Meningococcal B Vaccine Aged Out No l onger eligible based on patient's age to complete this topic RSV Immunization Patients Under 20 months Aged Out No longer eligible based on patient's age to complete this topic Varicella Vaccines Aged Out No longer eligible based on patient's age to complete this [place] [address] MEDICARE MEDICAID - [place]
== END 2024-10-06 12:06 | disposition home or self-care (01) ==
LOC: HO.HMCFM 11:11
PROVIDERS: PCP Physician Assistant; Visit Provider Physician Assistant
DX: N39.0 Urinary tract infection, site not specified (principal); Z87.898 Personal history of other specified conditions

== ENCOUNTER → 2024-10-06 11:10 | Outpatient (BNVA) | payer MEDICARE, MEDICAID, SELFPAY | PROVIDERS: PCP Physician Assistant; Visit Provider Physician Assistant | DX: N39.0 Urinary tract infection, site not specified (principal); Z87.898 Personal history of other specified conditions | CPT/HCPCS: 99212 ==

== ENCOUNTER 2024-10-06 12:15 | Outpatient (REF) | payer MEDICARE, MEDICAID, SELFPAY ==
[2024-10-06 14:43] LABS: Appearance Urine Cloudy; Color Urine Yellow; Glucose Urine UA Negative (Negative); Leukocyte Esterase Urine Large (3+) (Negative); Nitrite Urine Positive (Negative); UMIC TRIGGER UACC YES; Urine Blood Negative (Negative); Urine Ketones Negative (Negative); Urine Protein Negative (Neg-Trace)
[2024-10-06 14:45] LABS: Bacteria Urine 4+ (None Seen); Hyaline Casts Urine 0-2 /LPF (0-2); RBC Urine 0-2 /HPF (0-2); Squamous Epithelial Cell Urine 0-2 /HPF (0-2); UACC Culture Trigger YES; WBC Urine >50 /HPF (0-5)
== END 2024-10-06 12:16 | disposition home or self-care (01) ==
LOC: HO.WFDLDS 12:15
PROVIDERS: Visit Provider Physician Assistant
DX: N39.0 Urinary tract infection, site not specified (principal); Z87.898 Personal history of other specified conditions; D50.8 Other iron deficiency anemias; R62.7 Adult failure to thrive; K59.01 Slow transit constipation; Z13.220 Encounter for screening for lipoid disorders
CPT/HCPCS: 81001; 87086; 87088; 87186; 96127; 99212

== ENCOUNTER 2024-12-01 14:52 | Outpatient (AMB) | payer MEDICARE, MEDICAID, SELFPAY ==
--- NOTE | 2024-12-01 14:59 | MHC.PC.OV ---
Vital Signs 12/01/24 15:08 Height 5 ft 4 in Weight 88 lb BMI 15.1 BP 115/63 Blood Pressure Location Rt brachial Position Sitting Respiration 12 Pulse 101 H Pulse Source Pulse Oximeter Temp 98.6 F Temp Source Oral Pulse Oximetry (%) 100 Intake Visit Reasons: med review Intake Note: Medication follow. Still constipated. Need suppository every couple days. Allergies amoxicillin Allergy (Mild, Verified 10/06/24 11:18) Diarrhea Medication List - Last Reconciled 12/01/24 by Shweta Lindsey PA-C cefpodoxime 100 mg PO BID cholecalciferol (vitamin D3) (Vitamin D3) 50 mcg PO DAILY clobazam 10 mg PO BEDTIME diazepam [place] DAILY docusate sodium 100 mg PO DAILY fluticasone propionate 50 mcg/actuation (Flonase Allergy Relief) 1 spray intranasal DAILY food supplemt, lactose-reduced (Ensure Original oral liquid) 1 ea PO TID lacosamide 200 mg (2 x 100 mg) PO BID linaclotide (Linzess) 290 mcg PO DAILY linaclotide (Linzess) 290 mcg loratadine (Allergy Relief (loratadine)) 5 mg PO DAILY mineral oil (Fleet Mineral Oil enema) 118 mL [place] DAILY PRN nitrofurantoin macrocrystal 50 mg PO Q24H pantoprazole 40 mg PO DAILY polyethylene glycol 3350 (Miralax) 17 grams PO DAILY psyllium husk (Metamucil) 0.4 grams PO DAILY sennosides (senna) 8.6 mg PO DAILY tamsulosin 0.4 mg PO DAILY topiramate XR 100 mg PO BID Tobacco use date assessed: 10/06/24 Dental Screening Dental Screen Date: 01/28/24 HPI med review HPI Details Patient is a 34-year-old female with a significant past medical history of 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 She is accompanied today by both parents who helps provide the history as she is nonverbal. Neuro: Has been stable since her hospitalization this fall at [facility]. She was in the ICU from her seizures. She is currently being managed by [facility] but there have been some frame changer with doctors and patient is starting to continue most of her care at [facility] and family is wondering if we could consider consultation to the injection molding machine operator there. She is currently managed with clobazam, diazepam, Topamax. Uro: Recently started following with [facility] for her frequent UTIs and urinary retention. They have had to straight cath her with some regularity but that has helped. She is currently on Flomax and Macrobid. GI: Frustrated with the current bowel regimen for this patient. She is on Metamucil, MiraLax, Linzess in is still requiring suppositories every 2 days. She used to be regular in this irregularity started gradually over the last few months. Mom wants to make sure that there is nothing that she should be advocating for that this would be normal for her. She also used to enjoy eating but no longer does. She says that they have to really encourage her to eat. They are also trying to avoid a G-tube. Looking for a 2nd opinion. Weight is overall stable 88 lb. [facility] Medical History (Updated 06/16/24 @ 16:06 by Shweta Lindsey PA-C) Seizure, epileptic Asthma Family History (Updated 01/28/24 @ 14:20 by Elida Wilson CMA) Mother Asthma Maternal Grandmother HTN (hypertension) Hypercholesteremia Social History (Updated 01/28/24 @ 14:20 by Elida Wilson CMA) Housing: House (With mom) Patient Tobacco Use Status: Never used Tobacco e-Cigarette/Vaping Use: Never Used Second Hand Smoke Exposure: No service: No Current occupational status: disabled Cognitive needs: Yes (neurological disorder.) Hearing needs: No Vision needs: No Questionnaire Thrive Questionnaire Date Thrive assessed: 06/16/24 I am a: Parent/Caregiver What is your living situation today?: I have a steady place to live Within the past 12 months, did the food you bought not last and you didn't have the money to get more?: Never true Within the past 12 months, did you worry whether your food would run out before you got money to buy more?: I choose not to answer this question Do you have trouble paying for medicines?: No Do you have trouble getting transportation to medical appointments?: I choose not to answer this question Do you have trouble paying your heating and electricity bill?: I choose not to answer this question Do you have trouble taking care of your child, family member or friend?: I choose not to answer this question Do you have trouble with day-to-day activities such as bathing, preparing meals, shopping, managing finances, etc.?: I choose not to answer this question Are you currently unemployed and looking for a job?: I choose not to answer this question Are you interested in more education?: I choose not to answer this question Please select the resources that you would like help with: None Currently or been in a relationship where the following occur: No concerns reported THRIVE Score: 0 FARHANA-7 AMB Questionnaire FARHANA-7 Date FARHANA - 7 assessed: 06/16/24 Source: Developed by Drs. Jefferson Garcia, Mer Clemens, Kulwinder Loving and colleagues, with an educational josesito from [employer]. Physical exam (Primary Care) Vital Signs: Last Vital Signs Temp 98.6 F 12/01/24 15:08 Pulse 101 H 12/01/24 15:08 Resp 12 12/01/24 15:08 BP 115/63 12/01/24 15:08 Pulse Ox 100 12/01/24 15:08 BMI result Body Mass Index 15.1 Tobacco/Smoking Status: Tobacco use Status Tobacco use date assessed 10/06/24 12/01/24 15:00 Patient Tobacco Use Status Never used Tobacco 12/01/24 15:00 e-Cigarette/Vaping Use Never Used 12/01/24 15:00 Thrive Assessment: Date of Thrive Assessment Date Thrive assessed 06/16/24 12/01/24 15:00 Currently or been in a relationship where the following occur: No concerns reported Const General: comfortable HENMT Ears: hearing grossly normal bilaterally Neck Thyroid: Thyroid normal Lymphatic: no lymphadenopathy noted Resp Auscultation: clear to auscultation bilaterally Cardio Rate: regular rate Rhythm: regular rhythm Heart sounds: S1 normal heart sound present and S2 normal heart sound present GI Inspection: Yes normal to inspection Palpation (GI): Soft to palpation and Other GI palpation findings present (nontender, no cva tenderness) Auscultation: normoactive bowel sounds Rectal Exam - Female: deferred Skin General skin exam: no rashes or lesions noted Neuro General: gait normal and no focal motor deficits Coding Level of Care Code Est Pt Level 4 (37754) Complex EM visit Add On G2211 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 We will check labs. I have referred her to [facility], [facility] and she is going to continue following with [facility]. (3) Constipation: Code(s): K59.00 - Constipation, unspecified Category: Medical Qualifiers: Constipation type: slow transit constipation Qualified Code(s): K59.01 - Slow transit constipation Plan: As above (4) Seizure, epileptic: Code(s): G40.909 - Epilepsy, unspecified, not intractable, without status epilepticus Category: Medical Plan: As above Orders: Orders Complete Blood Count Auto Diff Today Shweta Lindsey PA-C K59.01 - Slow transit constipation, Q93.52 - [place]-McDermid syndrome, R62.7 - Adult failure to thrive, Z87.898 - Personal history of other specified conditions Comprehensive Met. Panel Today Shweta Lindsey PA-C K59.01 - Slow transit constipation, Q93.52 - [place]-McDermid syndrome, R62.7 - Adult failure to thrive, Z87.898 - Personal history of other specified conditions TSH reflex Free T4 Today Shweta Lindsey PA-C K59.01 - Slow transit constipation, Q93.52 - Loco-McDermid syndrome, R62.7 - Adult failure to thrive, Z87.898 - Personal history of other specified conditions UA CC w/rflx Micro + Cult Today Shweta Lindsey PA-C K59.01 - Slow transit constipation, Q93.52 - [place]-McDermid syndrome, R62.7 - Adult failure to thrive, Z13.220 - Encounter for screening for lipoid disorders, Z87.898 - Personal history of other specified conditions Referrals Neurology Referral Shweta Lindsey PA-C G40.909 - Epilepsy, unspecified, not intractable, without status epilepticus, Q93.52 - Loco-McDermid syndrome Gastroenterology Referral Shweta Lindsey PA-C K59.01 - Slow transit constipation, Q93.52 - [place]-McDermid syndrome, R62.7 - Adult failure to thrive Medications: Changed From linaclotide (Linzess) 145 mcg PO DAILY 30 caps 0RF To linaclotide (Linzess) 290 mcg PO DAILY Frida Johns MD
[2024-12-01 15:08] VITALS: BP 115/63; PULSE 101; RESP 12; TEMP 37; O2SAT 100; BMI 15.1
--- OUTSIDE RECORDS SUMMARY | 2024-12-01 18:03 | XMS_ITS | Clinical Summary ---
Author Organization [facility] Address [address] [place] [address] Phone Care Team Providers Care Frit Maker Name Role Phone Unavailable Primary Care Provider [...] Medical History Date Comments Juvenile Parkinson's disease ([facility] V24, [facility] V28) DX:Juvenile Parkinson's dise [facility]); COMMENT: Shriner's eval- med not helpful History [...] skills at 8yo; was worked up at [facility]; has had MRI's etc with no findings HL (hearing loss) nonverbal GERD (gastroesophageal reflu x disease) Anxiety Neuromuscular disorder ([facility] V24, [facility] V28) dystonia L arm Seizures ([facility] V24, [facility] V28) Family History Medical History Relation Name [...] complete this [place] [id number] [place]ICARE [place]
== END 2024-12-01 16:13 | disposition home or self-care (01) ==
LOC: HO.HMCFM 14:53
PROVIDERS: PCP Physician Assistant; Visit Provider Physician Assistant
DX: Q93.52 Phelan-McDermid syndrome (principal); R62.7 Adult failure to thrive; K59.01 Slow transit constipation; G40.909 Epilepsy, unspecified, not intractable, without status epilepticus

== ENCOUNTER → 2024-12-01 14:52 | Outpatient (BNVA) | payer MEDICARE, MEDICAID, SELFPAY | PROVIDERS: PCP Physician Assistant; Visit Provider Physician Assistant | DX: Z13.89 Encounter for screening for other disorder (principal) ==

== ENCOUNTER 2024-12-01 15:46 | Outpatient (REF) | payer MEDICARE, MEDICAID, SELFPAY ==
[2024-12-01 17:51] LABS: MANUAL DIFF FLAG NO
[2024-12-01 18:18] LABS: Alanine Aminotransferase 21 U/L (0-31); Albumin Level 4.6 g/dL (3.5-5.0); Alkaline Phosphatase 77 U/L (39-117); Anion Gap 12 (12-20); Aspartate Amino Transferase 24 U/L (5-31); Bilirubin Total 0.2 mg/dL (0.0-1.0); Blood Urea Nitrogen 11 mg/dL (9-16); Calcium 9.4 mg/dL (8.4-10.2); Carbon Dioxide 23 mmol/L (22-29); Chloride 109 mmol/L (96-108); Estimated Glomerular Filt Rate > 60; Glucose Random 96 mg/dL (60-115); Phosphorus 3.4 mg/dL (2.7-4.5); Potassium 3.8 mmol/L (3.3-5.1); Sodium 140 mmol/L (135-145); Total Protein 7.5 g/dL (6.5-8.0)
[2024-12-01 18:21] LABS: Basophils Percent Auto 0.8 % (0-2); Eosinophils Absolute Auto 0.4 X10*3/uL (0.0-0.4); Eosinophils Percent Auto 9.1 % (0-4); Hematocrit 38.1 % (37.0-47.0); Hemoglobin 12.7 g/dl (12.0-16.0); Imm Gran Abs Auto 0.01 X10*3/uL (0.00-0.03); Imm Gran Pct Auto 0.2 % (0.0-0.4); Lymphocytes Absolute Auto 1.5 X10*3/uL (1.2-4.9); Lymphocytes Percent Auto 30.7 % (20-40); Mean Corpuscular HGB Conc 33.3 g/dl (31.0-35.0); Mean Corpuscular Hemoglobin 32.2 pg (27.0-33.0); Mean Corpuscular Volume 96.5 fL (80.0-98.0); Mean Platelet Volume 13.2 fL (9.4-12.3); Monocytes Absolute Auto 0.4 X10*3/uL (0.1-1.2); Monocytes Percent Auto 8.2 % (2-11); Neutrophils Absolute Auto 2.4 x10*3/uL (2.0-8.3); Platelet Count 205 X10*3/uL (160-400); Red Blood Count 3.95 X10*6/uL (4.20-5.50); Red Cell Distribution Width 12.3 % (11.0-16.0); White Blood Count 4.7 X10*3/uL (4.8-10.8)
[2024-12-01 18:33] LABS: TSH reflex Free T4 0.86 uIU/mL (0.32-4.0)
== END 2024-12-01 15:47 | disposition home or self-care (01) ==
LOC: HO.WFDLDS 15:46
PROVIDERS: Visit Provider Physician Assistant
DX: K59.01 Slow transit constipation (principal); R62.7 Adult failure to thrive; G40.909 Epilepsy, unspecified, not intractable, without status epilepticus; Q93.52 Phelan-McDermid syndrome; Z87.898 Personal history of other specified conditions
CPT/HCPCS: 36415; 80053; 84100; 84443; 85025; 99212